=== PATIENT | female | born 1980 | race Caucasian/White ===

== ENCOUNTER → 2017-11-28 | Outpatient (CLI) | payer OTHER ==
--- NOTE | 2017-11-28 15:38 | DIAGNOSTIC IMAGING REPORT ---
CHEST 2 VIEWS ROUTINE CLINICAL HISTORY: R05,R61 cough COMPARISON STUDY: No previous studies for comparison. FINDINGS: Mild nonspecific bibasilar interstitial change. No well-defined focal infiltrates. Diaphragms are smooth. Upper lungs are clear. IMPRESSION: Mild nonspecific bibasilar interstitial change. Otherwise negative study. The above report was generated using voice recognition software. It may contain grammatical, syntax or spelling errors. Electronically signed by: Ihsan Ferrara M.D. 11/28/2017 3:37 PM Dictated Date/Time: 11/28/2017 3:36 PM
== END | disposition home or self-care (01) ==
LOC: C.RAD1850 15:24
PROVIDERS: ATTEND Family Medicine
DX: R05 Cough (principal); R61 Generalized hyperhidrosis

== ENCOUNTER → 2017-11-30 | Outpatient (CLI) | payer OTHER ==
[2017-11-30 18:14] LABS: BASO % 0.1 %; BASO ABS # 0.02 K/uL (0-0.2); EOS % 0.2 %; EOS ABS # 0.03 K/uL (0-0.5); HEMOGLOBIN 13.7 g/dL (12.0-16.0); IG# 0.05 K/uL (0.00-0.02); LYMPH % 8.2 %; LYMPH ABS # 1.37 K/uL (1.2-3.4); MEAN CELL VOLUME 84.4 fL (80-100); MEAN CORPUSCULAR HEMOGLOBIN 29.7 pg (25-34); MEAN CORPUSCULAR HGB CONC 35.1 g/dl (32-36); MEAN PLATELET VOLUME 10.6 fL (7.4-10.4); MONO % 6.3 %; MONO ABS # 1.06 K/uL (0.11-0.59); NEUT % 84.9 %; NEUT ABS # 14.19 K/uL (1.4-6.5); PLATELET COUNT 270 K/uL (130-400); RED CELL DISTRIBUTION WIDTH CV 12.4 % (11.5-14.5); RED CELL DISTRIBUTION WIDTH SD 38.1 fL (36.4-46.3); WHITE BLOOD COUNT 16.72 K/uL (4.8-10.8)
[2017-11-30 18:47] LABS: ALBUMIN 3.6 gm/dl (3.4-5.0); ALT/SGPT 19 U/L (12-78); AST/SGOT 9 U/L (15-37); BLOOD UREA NITROGEN 11 mg/dl (7-18); CALCIUM 8.2 mg/dl (8.5-10.1); CARBON DIOXIDE 24 mmol/L (21-32); CREATININE 0.87 mg/dl (0.60-1.20); GLUCOSE 111 mg/dl (70-99); POTASSIUM 3.7 mmol/L (3.5-5.1); SODIUM 135 mmol/L (136-145)
[2017-11-30 18:50] LABS: ALKALINE PHOSPHATASE 78 U/L (45-117); TOTAL PROTEIN 7.8 gm/dl (6.4-8.2)
== END | disposition home or self-care (01) ==
LOC: C.LAB 17:21
PROVIDERS: ATTEND Student in an Organized Health Care Education/Training Program
DX: J02.9 Acute pharyngitis, unspecified (principal)

== ENCOUNTER → 2017-12-02 | Outpatient (CLI) | payer OTHER ==
--- NOTE | 2017-12-02 15:50 | DIAGNOSTIC IMAGING REPORT ---
CHEST 2 VIEWS ROUTINE CLINICAL HISTORY: Fever and cough. COMPARISON STUDY: Chest radiograph November 28, 2017. FINDINGS: Lung volumes are normal. No pneumothorax or pleural effusion is noted. There is no consolidation or evidence for pulmonary edema. Cardiomediastinal silhouette is unremarkable. IMPRESSION: No acute cardiopulmonary findings. Electronically signed by: Merlin Child M.D. 12/02/2017 3:49 PM Dictated Date/Time: 12/02/2017 3:48 PM
[2017-12-02 15:55] LABS: BASO % 0.3 %; BASO ABS # 0.04 K/uL (0-0.2); EOS % 1.7 %; EOS ABS # 0.19 K/uL (0-0.5); HEMATOCRIT 38.6 % (37-47); HEMOGLOBIN 13.7 g/dL (12.0-16.0); IG# 0.06 K/uL (0.00-0.02); LYMPH % 20.8 %; LYMPH ABS # 2.38 K/uL (1.2-3.4); MEAN CELL VOLUME 83.9 fL (80-100); MEAN CORPUSCULAR HEMOGLOBIN 29.8 pg (25-34); MEAN PLATELET VOLUME 10.2 fL (7.4-10.4); MONO ABS # 1.38 K/uL (0.11-0.59); NEUT % 64.7 %; NEUT ABS # 7.41 K/uL (1.4-6.5); PLATELET COUNT 253 K/uL (130-400); RED CELL DISTRIBUTION WIDTH SD 39.3 fL (36.4-46.3); WHITE BLOOD COUNT 11.46 K/uL (4.8-10.8)
[2017-12-02 16:01] LABS: MEAN CORPUSCULAR HGB CONC 35.5 g/dl (32-36)
[2017-12-02 16:17] LABS: ALBUMIN 3.4 gm/dl (3.4-5.0); ALKALINE PHOSPHATASE 79 U/L (45-117); ALT/SGPT 20 U/L (12-78); AST/SGOT 12 U/L (15-37); BLOOD UREA NITROGEN 14 mg/dl (7-18); CARBON DIOXIDE 25 mmol/L (21-32); CREATININE 0.69 mg/dl (0.60-1.20); GLUCOSE 109 mg/dl (70-99); POTASSIUM 3.6 mmol/L (3.5-5.1); SODIUM 137 mmol/L (136-145); TOTAL PROTEIN 8.2 gm/dl (6.4-8.2)
[2017-12-05 06:14] LABS: QUANTIF MITOGEN-NIL 9.07 IU/ML; QUANTIFERON NEGATIVE (NEGATIVE); QUANTIFERON NIL 0.21 IU/ML
== END | disposition home or self-care (01) ==
LOC: C.LAB1850 14:48
PROVIDERS: ATTEND Student in an Organized Health Care Education/Training Program
DX: A68.9 Relapsing fever, unspecified (principal); R05 Cough

== ENCOUNTER 2020-10-03 07:59 | Inpatient (IN) ==
[2020-10-03] MEDS ORDERED: OXYTOCIN 30 UNITS/500 ML BAG IV PRN ×3 (08:20→23:02)
[2020-10-03] MEDS ORDERED: DEXTROSE 50% 50 ML SYRINGE IV PRN (08:22)
[2020-10-03] MEDS ORDERED: INSULIN REGULAR 250 UNITS in SODIUM CHLORIDE 0.9% 247.5 ML IV PRN (08:22)
[2020-10-03] MEDS ORDERED: DEXTROSE 5% 1,000 ML IV PRN (08:22)
[2020-10-03] MEDS ORDERED: SODIUM CHLORIDE 0.9% 1000ML 1,000 ML IV PRN (08:22)
[2020-10-03 08:40] LABS: Mean Corpuscular Hemoglobin 27.5 pg (25-34); Mean Corpuscular Hgb Conc 33.3 g/dL (32-36); Mean Corpuscular Volume 82.5 fL (80-100); Mean Platelet Volume 10.7 fL (7.4-10.4); Platelet Count 254 K/uL (130-400); RDW Coefficient of Variation 13.6 % (11.5-14.5); RDW Standard Deviation 41.6 fL (36.4-46.3); White Blood Count 9.88 K/uL (4.8-10.8)
--- NOTE | 2020-10-03 09:30 | Obstetrical Progress Note ---
Date of Service October 03, 2020 Assessment & Plan Admission and Anticipated Discharge Date Admission Date: October 03, 2020 Subjective Admit Note 40 F P1001 at 40 weeks admitted to L&D for induction of labor for gestational diabetes on insulin. Her GBS is negative. Covid is pending. Cervix is 3/70/- 3/vertex/intact/anterior/soft. EFW 9 lbs. Finger stick blood sugar this morning is 133. Patient is resistant to insulin drip but I told her that the protocol for women on insulin with high sugars is to be on an insulin drip. She is finally agreeing to start this now. I also explained that while on Oxytocin she needs to be monitored for both contractions and monitoring. She is in agreement with this as well. Will start Oxytocin for induction. Patient is in agreement with this. Results & Data ([facility]) Vital Signs (Past 12 Hours) Vital Signs Temp Pulse Resp BP 10/03/20 09:16 112 H 151/91 H 10/03/20 08:54 114 H 143/96 H 10/03/20 08:22 36.8 C 122 H 20 146/90 H
[2020-10-03] MEDS: LACTATED RINGER'S 1,000 ML IV PRN ×2 (10:18→17:47)
--- NOTE | 2020-10-03 15:56 | Obstetrical Progress Note ---
Date of Service October 03, 2020 Assessment & Plan Admission and Anticipated Discharge Date Admission Date: October 03, 2020 Physical Exam Genitourinary: Manual OB Exam: + cervical dilation 4 cm and 5 cm, + cervical effacement 70% and + station -2 OB Exam Monitor Tracing: + external FHT monitor used, + external uterine monitor used, + category I and + normal FHT variability Results & Data ([facility]) Vital Signs (Past 12 Hours) Vital Signs Temp Pulse Resp BP 10/03/20 15:54 93 H 155/87 H 10/03/20 15:38 85 160/96 H 10/03/20 15:02 36.7 C 91 H 20 132/94 10/03/20 14:29 90 138/76 10/03/20 13:31 36.7 C 91 H 20 132/83 10/03/20 12:33 83 20 111/74 10/03/20 11:35 90 157/88 H 10/03/20 11:20 92 H 144/88 H 10/03/20 11:01 36.9 C 95 H 20 144/91 H 10/03/20 10:28 101 H 143/91 H 10/03/20 09:16 112 H 151/91 H 10/03/20 08:54 114 H 143/96 H 10/03/20 08:22 36.8 C 122 H 20 146/90 H
[2020-10-03] MEDS ORDERED: ePHEDrine sulfate 50 MG/ML AMP ONE (17:59)
[2020-10-03] MEDS ORDERED: SODIUM CHLORIDE 0.9% INJ 10 ML VIAL ONE (17:59)
[2020-10-03] MEDS ORDERED: fentaNYL 2MCG/ML ROPIVACAINE 1.25MG/ML 100 ML BAG EPI ONE (18:00)
[2020-10-03] MEDS ORDERED: fentaNYL citrate 100 MCG/2 ML VIAL ONE (18:00)
[2020-10-03] MEDS ORDERED: BUPIVACAINE 0.25% 30 ML VIAL ONE (18:00)
--- NOTE | 2020-10-03 18:41 | Obstetrical Progress Note ---
Date of Service October 03, 2020 Assessment & Plan Admission and Anticipated Discharge Date Admission Date: October 03, 2020 Physical Exam Genitourinary: Manual OB Exam: + cervical dilation 7 cm and 8 cm, + cervical effacement 90%, + station -1 and + amniotic fluid clear OB Exam Monitor Tracing: + external FHT monitor used, + external uterine monitor used, + c ategory I and + normal FHT variability Results & Data ([facility]) Vital Signs (Past 12 Hours) Vital Signs Temp Pulse Resp BP Pulse Ox 10/03/20 18:39 86 98 10/03/20 18:38 80 143/90 H 10/03/20 18:34 90 138/65 97 10/03/20 18:29 89 97 10/03/20 18:28 82 92 10/03/20 18:24 93 H 98 10/03/20 18:19 92 H 98 10/03/20 18:14 89 97 10/03/20 18:09 87 98 10/03/20 18:07 88 128/71 10/03/20 18:04 86 98 10/03/20 17:01 86 20 129/83 10/03/20 15:54 93 H 155/87 H 10/03/20 15:38 85 160/96 H 10/03/20 15:02 36.7 C 91 H 20 132/94 10/03/20 14:29 90 138/76 10/03/20 13:31 36.7 C 91 H 20 132/83 10/03/20 12:33 83 20 111/74 10/03/20 11:35 90 157/88 H 10/03/20 11:20 92 H 144/88 H 10/03/20 11:01 36.9 C 95 H 20 144/91 H 10/03/20 10:28 101 H 143/91 H 10/03/20 09:16 112 H 151/91 H 10/03/20 08:54 114 H 143/96 H 10/03/20 08:22 36.8 C 122 H 20 146/90 H
--- NOTE | 2020-10-03 18:55 | Anesthesiology Consultation ---
Date of Service October 03, 2020 Assessment & Plan Chart Review Chart Review: Acceptable Risk for Labor Epidural Consults Requested none History Height/Weight Height: 5 ft 7.5 in Weight: 132.449 kg Allergies Allergy/AdvReac Type Severity Reaction Status Date / Time morphine AdvReac Agitated Verified 10/03/20 08:23 Medications Home Medications Medication Instructions Recorded Confirmed Last Taken doxylamine succinate 25 mg PO BID PRN 10/03/20 10/03/20 10/03/20 00:01 insulin NPH isoph U-100 human 50 unit SUBCUT HS 10/03/20 10/03/20 10/03/20 00:01 Active Medications Generic Name Dose Route Start Last Admin Trade Name Freq PRN Reason Stop Dose Admin Lactated Ringer's 1,000 mls @ 125 mls/hr 10/03/20 08:20 10/03/20 18:51 Lr IV 10/05/20 08:19 125 mls/hr .Q8H PRN Infusion L&D Protocol Protocol Insulin Human Regular 250 250 mls @ 0.5 mls/hr 10/03/20 08:22 10/03/20 18:45 units/ Sodium Chloride IV 11/02/20 08:21 1 units/hr Q24H PRN 1 mls/hr BSG 80mg/dL or above Titration Protocol Titrate Dextrose 1,000 mls @ 100 mls/hr 10/03/20 08:22 10/03/20 18:50 D5w IV 11/02/20 08:21 75 mls/hr .Q10H PRN Infusion BSG 180 or below Protocol Oxytocin 30 units in 500 mls @ 15 mls/hr 10/03/20 09:20 10/03/20 18:51 Pitocin IV 10/05/20 09:19 0.9 units/hr .Q24H PRN 15 mls/hr Labor Induction/Augmentation Titration Protocol 0.9 UNITS/HR Past Medical History Medical History Finger amputation, no complication Past Family History Family History Other Hypertension Social History Smoking Status: Never smoker Hx Alcohol Use: No Hx Substance Use: No Physical Exam Vital Signs Last Vital Signs Temp 36.7 C 10/03/20 15:02 Pulse 93 H 01/15/21 18:52 Resp 20 10/03/20 17:01 BP 133/81 10/03/20 18:52 Pulse Ox 98 10/03/20 18:49 Testing Laboratory Results 10/03/20 08:27 10/03/20 10/03/20 10/03/20 18:47 17:23 16:33 POC Glucose 111 H 92 91 10/03/20 10/03/20 10/03/20 15:31 14:31 13:34 POC Glucose 101 H 83 87 10/03/20 10/03/20 10/03/20 12:34 11:30 10:34 POC Glucose 92 92 102 H 10/03/20 10/03/20 09:47 08:46 POC Glucose 107 H 133 H
[2020-10-03] MEDS ORDERED: diphenhydrAMINE 50 MG/ML VIAL IV PRN ×3 (18:57→20:50)
[2020-10-03] MEDS ORDERED: NALOXONE HCL 0.4 MG/1 ML VIAL/CARP IV PRN ×3 (18:57→20:50)
[2020-10-03] MEDS ORDERED: ePHEDrine sulfate 50 MG/ML AMP IV PRN ×3 (18:57→20:50)
[2020-10-03] MEDS ORDERED: fentaNYL 2MCG/ML ROPIVACAINE 1.25MG/ML 100 ML BAG EPI PRN ×3 (18:57→20:50)
[2020-10-03] MEDS ORDERED: NALOXONE HCL 1 MG in SODIUM CHLORIDE 0.9% 1000ML 1,000 ML IV PRN ×3 (18:57→20:50)
[2020-10-03] MEDS ORDERED: Nursing to Pharmacy Communication SCH (21:00)
--- NOTE | 2020-10-03 21:53 | Obstetrical Progress Note ---
Date of Service October 03, 2020 Assessment & Plan Admission and Anticipated Discharge Date Admission Date: October 03, 2020 Physical Exam Genitourinary: Manual OB Exam: + cervical dilation 10 cm, + cervical effacement 100% and + station 0 OB Exam Monitor Tracing: + external FHT monitor used, + external uterine monitor used, + category I and + normal FHT variability will start to push Results & Data ([facility]) Vital Signs (Past 12 Hours) Vital Signs Temp Pulse Resp BP Pulse Ox 10/03/20 21:49 97 H 99 10/03/20 21:44 97 H 100 10/03/20 21:39 89 97 10/03/20 21:37 93 H 125/72 10/03/20 21:34 87 98 10/03/20 21:29 80 96 10/03/20 21:24 82 96 10/03/20 21:23 84 123/63 10/03/20 21:19 86 98 10/03/20 21:14 85 98 10/03/20 21:09 79 98 10/03/20 21:07 79 116/67 10/03/20 21:04 82 98 10/03/20 21:01 18 10/03/20 20:59 86 100 10/03/20 20:54 95 H 98 10/03/20 20:53 81 126/66 10/03/20 20:49 83 98 10/03/20 20:44 85 100 10/03/20 20:39 85 129/64 99 10/03/20 20:34 80 99 10/03/20 20:29 88 97 10/03/20 20:24 83 126/81 98 10/03/20 20:19 82 98 10/03/20 20:14 78 98 10/03/20 20:09 80 99 10/03/20 20:08 80 127/59 L 10/03/20 20:04 91 H 97 10/03/20 19:59 75 18 98 10/03/20 19:54 82 99 10/03/20 19:53 84 89 L 10/03/20 19:49 84 98 10/03/20 19:44 80 99 10/03/20 19:39 78 98 10/03/20 19:37 75 114/65 10/03/20 19:34 89 99 10/03/20 19:29 87 99 10/03/20 19:24 84 99 10/03/20 19:23 83 113/68 10/03/20 19:19 86 99 10/03/20 19:15 36.4 C L 18 10/03/20 19:14 88 99 10/03/20 19:09 97 H 99 10/03/20 19:06 83 137/75 10/03/20 19:04 88 99 10/03/20 19:01 83 127/86 10/03/20 18:59 80 98 10/03/20 18:55 82 140/85 10/03/20 18:54 93 H 99 10/03/20 18:52 93 H 133/81 10/03/20 18:49 95 H 130/80 98 10/03/20 18:46 94 H 126/78 10/03/20 18:44 97 H 98 10/03/20 18:43 83 130/72 10/03/20 18:40 96 H 105/66 10/03/20 18:39 86 98 10/03/20 18:38 80 143/90 H 10/03/20 18:34 90 138/65 97 10/03/20 18:29 89 97 10/03/20 18:28 82 92 10/03/20 18:24 93 H 98 10/03/20 18:19 92 H 98 10/03/20 18:14 89 97 10/03/20 18:09 87 98 10/03/20 18:07 88 128/71 10/03/20 18:04 86 98 10/03/20 17:01 86 20 129/83 10/03/20 15:54 93 H 155/87 H 10/03/20 15:38 85 160/96 H 10/03/20 15:02 36.7 C 91 H 20 132/94 10/03/20 14:29 90 138/76 10/03/20 13:31 36.7 C 91 H 20 132/83 10/03/20 12:33 83 20 111/74 10/03/20 11:35 90 157/88 H 10/03/20 11:20 92 H 144/88 H 10/03/20 11:01 36.9 C 95 H 20 144/91 H 10/03/20 10:28 101 H 143/91 H
--- NOTE | 2020-10-03 22:58 | Delivery Summary ---
Vaginal Delivery Summary Date of Service October 03, 2020 Delivery Note live female RENÉE over intact perineum with delayed cord clamping and Apgars 8/9, weight pending. Cord blood obtained and placenta delivered spontaneously and intact. No tears. EBL 200 ml. Final sponge and instrument count are correct. Mom and baby are stable.
[2020-10-03] MEDS ORDERED: ACETAMINOPHEN 325 MG TAB PO PRN (23:02)
[2020-10-03] MEDS ORDERED: LACTATED RINGER'S 1,000 ML IV SCH (23:02)
[2020-10-03] MEDS ORDERED: BENZOCAINE 20% AER SPR 82.5 GM CAN EXT PRN (23:02)
[2020-10-03] MEDS ORDERED: DIPHTHERIA/TETANUS/PERTUSSIS 0.5 ML SYR/VIAL IM ONE (23:02)
[2020-10-03] MEDS ORDERED: SUPERCREAM 0.870% 15 GM JAR EXT PRN (23:02)
[2020-10-03] MEDS ORDERED: bisacodyL 10 MG SUPP PR PRN (23:02)
[2020-10-03] MEDS ORDERED: HYDROCORTISONE ACETATE 25 MG SUPP PR PRN (23:02)
[2020-10-04] MEDS: IBUPROFEN 600 MG TAB PO PRN ×3 (01:34→19:38)
[2020-10-04 06:37] LABS: Hematocrit (blood only) 27.8 % (37-47); Hemoglobin 9.3 g/dL (12.0-16.0); Mean Corpuscular Hemoglobin 27.4 pg (25-34); Mean Corpuscular Hgb Conc 33.5 g/dL (32-36); Mean Platelet Volume 10.8 fL (7.4-10.4); Platelet Count 236 K/uL (130-400); RDW Coefficient of Variation 13.8 % (11.5-14.5); RDW Standard Deviation 41.5 fL (36.4-46.3); Red Blood Count 3.39 M/uL (4.2-5.4); White Blood Count 14.33 K/uL (4.8-10.8)
--- NOTE | 2020-10-04 07:38 | Anesthesia Procedure Note ---
Date of Service October 04, 2020 Anesthesia Post Epidural Note Vital Signs Vital Signs: Temp Pulse Resp BP Pulse Ox 36.3 C L 84 18 121/78 97 10/04/20 04:10 10/04/20 04:10 10/04/20 04:10 10/04/20 04:10 10/03/20 23:49 Pain Intensity Bilateral Anterior Abdomen: Pain Intensity: 3 Notes Mental Status: alert / awake / arousable and participated in evaluation Nausea / Vomiting: adequately controlled Pain: adequately controlled Airway Patency, RR, SpO2: stable & adequate BP & HR: stable & adequate Hydration State: stable & adequate Neuraxial Anesthesia: was administered and sensory block is resolving Anesthetic Complications: no major complications apparent and Pt Satisfied with anesthetic care Epidural: Removed without complications and With tip intact Notes: pulled by eloy levy - tip intact. Epidural site clean, dry and intact. No signs of edema, erythema or bruising at insertion site. Pt instructed to request anesthesia if she has residual lower extremity numbness or if she develops lower extremity pain or weakness, back pain or headache.
[2020-10-04] MEDS ORDERED: FERROUS SULFATE 325 MG TAB PO SCH (08:00)
[2020-10-04] MEDS ORDERED: DOCUSATE SODIUM 100 MG CAP PO SCH (08:00)
[2020-10-04] MEDS ORDERED: PRENATAL VITAMIN 1 TAB PO SCH (08:00)
[2020-10-04] MEDS: FERROUS SULFATE 325 MG TAB PO SCH ×2 (08:45→19:39)
--- NOTE | 2020-10-04 10:27 | Obstetrical Progress Note ---
Date of Service October 04, 2020 Assessment & Plan Admission and Anticipated Discharge Date Admission Date: October 03, 2020 Subjective Patient is seen and examined. She feels well, no complaints. Ambulating without dizziness Voiding without difficulty Tolerating regular diet with out N&V Bleeding is minimal No fever/ chills/ CP/ SOB/ N&V/ Leg pain Breast feeding without problems Vital Signs Temp Pulse Pulse Resp BP BP Pulse Ox 10/04/20 04:10 36.3 C L 84 18 121/78 10/04/20 02:10 36.6 C 103 H 18 141/89 H 10/04/20 00:53 113 H 148/80 H 10/04/20 00:40 18 10/04/20 00:23 115 H 139/79 10/04/20 00:10 18 10/03/20 23:55 104 H 139/74 10/03/20 23:49 106 H 97 10/03/20 23:44 93 H 98 10/03/20 23:40 1 L 10/03/20 23:39 102 H 98 10/03/20 23:34 91 H 97 10/03/20 23:29 96 H 97 10/03/20 23:25 18 10/03/20 23:24 109 H 96 10/03/20 23:23 112 H 139/66 10/03/20 23:19 93 H 97 10/03/20 23:14 92 H 96 10/03/20 23:10 18 10/03/20 23:09 88 97 10/03/20 23:06 92 H 132/63 10/03/20 23:04 91 H 97 10/03/20 22:59 94 H 97 10/03/20 22:55 18 10/03/20 22:54 88 98 10/03/20 22:49 91 H 98 10/03/20 22:44 98 H 97 10/03/20 22:40 36.7 C 18 10/03/20 22:39 95 H 97 10/03/20 22:38 108 H 158/84 H 10/03/20 22:34 106 H 98 10/03/20 22:30 18 10/03/20 22:29 100 H 97 Lab Results 10/03/20 10/03/20 10/03/20 Range/Units 08:27 08:46 09:47 WBC 9.88 (4.8-10.8) K/uL RBC 4.00 L (4.2-5.4) M/uL Hgb 11.0 L (12.0-16.0) g/dL Hct 33.0 L (37-47) % MCV 82.5 (80-100) fL MCH 27.5 (25-34) pg MCHC 33.3 (32-36) g/dL RDW Std Deviation 41.6 (36.4-46.3) fL RDW Coeff of Leonard 13.6 (11.5-14.5) % Plt Count 254 (130-400) K/uL MPV 10.7 H (7.4-10.4) fL POC Glucose 133 H 107 H (70-99) mg/dl COVID-19 Eval Order SARS-CoV-2, RNA, NAAT (NEGATIVE) 10/03/20 10/03/20 10/03/20 Range/Units 10:34 11:30 12:34 WBC (4.8-10.8) K/uL RBC (4.2-5.4) M/uL Hgb (12.0-16.0) g/dL Hct (37-47) % MCV (80-100) fL MCH (25-34) pg MCHC (32-36) g/dL RDW Std Deviation (36.4-46.3) fL RDW Coeff of Leonard (11.5-14.5) % Plt Count (130-400) K/uL MPV (7.4-10.4) fL POC Glucose 102 H 92 92 (70-99) mg/dl COVID-19 Eval Order SARS-CoV-2, RNA, NAAT (NEGATIVE) 10/03/20 10/03/20 10/03/20 Range/Units 13:34 14:31 15:31 WBC (4.8-10.8) K/uL RBC (4.2-5.4) M/uL Hgb (12.0-16.0) g/dL Hct (37-47) % MCV (80-100) fL MCH (25-34) pg MCHC (32-36) g/dL RDW Std Deviation (36.4-46.3) fL RDW Coeff of Leonard (11.5-14.5) % Plt Count (130-400) K/uL MPV (7.4-10.4) fL POC Glucose 87 83 101 H (70-99) mg/dl COVID-19 Eval Order SARS-CoV-2, RNA, NAAT (NEGATIVE) 10/03/20 10/03/20 10/03/20 Range/Units 16:33 17:23 18:47 WBC (4.8-10.8) K/uL RBC (4.2-5.4) M/uL Hgb (12.0-16.0) g/dL Hct (37-47) % MCV (80-100) fL MCH (25-34) pg MCHC (32-36) g/dL RDW Std Deviation (36.4-46.3) fL RDW Coeff of Leonard (11.5-14.5) % Plt Count (130-400) K/uL MPV (7.4-10.4) fL POC Glucose 91 92 111 H (70-99) mg/dl COVID-19 Eval Order SARS-CoV-2, RNA, NAAT (NEGATIVE) 10/03/20 10/03/20 10/03/20 Range/Units 19:47 20:40 22:01 WBC (4.8-10.8) K/uL RBC (4.2-5.4) M/uL Hgb (12.0-16.0) g/dL Hct (37-47) % MCV (80-100) fL MCH (25-34) pg MCHC (32-36) g/dL RDW Std Deviation (36.4-46.3) fL RDW Coeff of Leonard (11.5-14.5) % Plt Count (130-400) K/uL MPV (7.4-10.4) fL POC Glucose 105 H 92 94 (70-99) mg/dl COVID-19 Eval Order SARS-CoV-2, RNA, NAAT (NEGATIVE) 10/03/20 10/03/20 10/04/20 Range/Units Unknown Unknown 06:10 WBC 14.33 H (4.8-10.8) K/uL RBC 3.39 L (4.2-5.4) M/uL Hgb 9.3 L (12.0-16.0) g/dL Hct 27.8 L (37-47) % MCV 82.0 (80-100) fL MCH 27.4 (25-34) pg MCHC 33.5 (32-36) g/dL RDW Std Deviation 41.5 (36.4-46.3) fL RDW Coeff of Leonard 13.8 (11.5-14.5) % Plt Count 236 (130-400) K/uL MPV 10.8 H (7.4-10.4) fL POC Glucose (70-99) mg/dl COVID-19 Eval Order Covid19 [facility] SARS-CoV-2, RNA, NAAT NEGATIVE (NEGATIVE) PE: General: Alert, orientedx3, NAD Abd: soft, NT, fundus firm, below Umbilicus Perineum intact, Lochia rubra minimal Ext; NT, no edema AP: 40 yo s/p , ppd# 1 VSS Afebrile doing well Continue routine care All questions were answered Desires d/c tonight Discussed when to call D/C home , f/u in office Results & Data ([facility]) Vital Signs (Past 12 Hours) Vital Signs Temp Pulse Pulse Resp BP BP Pulse Ox 10/04/20 04:10 36.3 C L 84 18 121/78 10/04/20 02:10 36.6 C 103 H 18 141/89 H 10/04/20 00:53 113 H 148/80 H 10/04/20 00:40 18 10/04/20 00:23 115 H 139/79 10/04/20 00:10 18 10/03/20 23:55 104 H 139/74 10/03/20 23:49 106 H 97 10/03/20 23:44 93 H 98 10/03/20 23:40 1 L 10/03/20 23:39 102 H 98 10/03/20 23:34 91 H 97 10/03/20 23:29 96 H 97 10/03/20 23:25 18 10/03/20 23:24 109 H 96 10/03/20 23:23 112 H 139/66 10/03/20 23:19 93 H 97 10/03/20 23:14 92 H 96 10/03/20 23:10 18 10/03/20 23:09 88 97 01/15/21 23:06 92 H 132/63 01/15/21 23:04 91 H 97 10/03/20 22:59 94 H 97 10/03/20 22:55 18 10/03/20 22:54 88 98 10/03/20 22:49 91 H 98 10/03/20 22:44 98 H 97 10/03/20 22:40 36.7 C 18 10/03/20 22:39 95 H 97 10/03/20 22:38 108 H 158/84 H 10/03/20 22:34 106 H 98 10/03/20 22:30 18 10/03/20 22:29 100 H 97
[2020-10-04] MEDS ORDERED: bisacodyL 5 MG TABEC PO SCH (20:00)
== END 2020-10-04 23:40 | disposition home or self-care (01) | DRG 807 ==
LOC: 4S1 07:59 → 4S2 10-04 01:47

== ENCOUNTER 2023-09-19 00:46 | Inpatient (IN) ==
[2023-09-19] MEDS ORDERED: GABAPENTIN 100 MG CAP PO STA (01:21)
[2023-09-19] MEDS ORDERED: ACETAMINOPHEN 1,000 MG/100 ML VIAL IV STA (01:21)
[2023-09-19] MEDS ORDERED: LIDOCAINE 5% 1 PATCH TD STA (01:21)
[2023-09-19] MEDS ORDERED: KETOROLAC TROMETHAMINE 15 MG/ML VIAL IV ONE ×2 (01:21→08:26)
--- NOTE | 2023-09-19 01:21 | Emergency Department Note ---
Impression & Plan Back pain, Lumbar radiculopathy, Lumbar disc herniation ED Provider Note ED Provider Note NAME: ERASTO HARVEY AGE:43 SEX: Female : 1980 ARRIVES VIA: private vehicle INFORMANT: Patient ED PROVIDER(s): Sujata Griffith DO CHIEF COMPLAINT: back pain, unable to walk, difficulty urinating HPI: This is a 43-year-old female who presents emergency department due to concern for worsening back pain. Patient states she has a history of chronic back pain managed by physical therapy and regular chiropractic appointments. She states she and her have been on sabbatical in [place] recently so she was unable to have regular appointments such as this and she had slowly worsening pain over the course of the last 6 months. She states on Tuesday she was standing at a workstation with her right leg up on the step and sneezed and suddenly had severe pain in her back radiating down into the right lower extremity and has been unable to walk since then. She states she was in [place] when this happened where she is from and was seen and admitted at a hospital in [place]. She states she underwent CAT scan and MRI. She states she had a previously known herniated disc in her lumbar spine which now appeared worse on imaging. She states they did not feel she required surgery and instead were going to try and get her placed in inpatient rehab for physiotherapy. She states she has previously seen Dr. Ward locally as she works for the [employer]. She states she has been in contact with her chiropractor who had messaged Dr. Ward and she was instructed to come to the ER to be admitted. Patient was given additional medications at time of discharge from the hospital in [place] including hydromorphone and Celebrex. She did take a dose of the narcotic pain medication prior to arrival. PAST MEDICAL HISTORY:See Below PAST SURGICAL HISTORY:See Below FAMILY HISTORY:See Below SOCIAL HISTORY:See Below HOME MEDICATIONS:See Below ALLERGIES:See Below VITALS:See Below PHYSICAL EXAMINATION: GENERAL: alert, unwell appearing, well nourished, no distress, non-toxic, laying prone EYE EXAM: normal conjunctiva, PERRL and EOM's grossly intact OROPHARYNX: no exudate, no erythema, lips, buccal mucosa, and tongue normal and mucous membranes are moist NECK: supple, no nuchal rigidity, no adenopathy, non-tender LUNGS: Clear to auscultation. Normal chest wall mechanics, no w/r/r HEART: no murmurs, S1 normal and S2 normal ABDOMEN: abdomen soft, non-tender, normo-active bowel sounds, no masses, no rebound or guarding. BACK: Back is symmetrical on inspection and there is no deformity, tenderness across lumbar area, no CVA tenderness. SKIN: no rashes, petechiae, orbruising UPPER EXTREMITIES: upper extremities are grossly normal. FROM, nml pulses b/l. LOWER EXTREMITIES: No pitting edema. nml pulses b/l. Sensation intact however patient states right lower extremity feels slightly weak and she has slight tingling and dullness, weakness noted with plantar and dorsiflexion of the right lower extremity, right patellar reflex diminished NEURO EXAM: Normal sensorium, cranial nerves II-XII grossly intact, normal speech, no facial droop,nogross weakness of arms, no gross weakness of legs. Gross sensation intact. No ataxia. Vital Signs: reviewed and remarkable Differential Diagnosis: Differential diagnoses includes but is not limited to lumbar radiculopathy, muscle strain, facture, cauda equina, mass, and disc herniation. MEDICAL DECISION MAKING: This is a 43-year-old female presents emergency department due to concern for increased low back pain, inability to walk, as well as right lower extremity pain and paresthesias. Patient with chronic low back pain and known herniated disc. Patient afebrile and vital signs stable. She did bring with copies of reports from recent hospitalization in [place] which is where symptoms began. She was referred here by her chiropractor who had contacted Dr. Ward. Labs drawn and sent, IV established, patient started on gentle IV fluid hydration and given IV Toradol and IV Dilaudid to help with her pain. Case initially discussed with Dr. Ward's PA overnight who recommended repeat lumbar spine given no images from her recent imaging were actually available only reports. Patient sent for MRI. Case then discussed with Dr. Ward in the morning who will admit her for additional management and evaluation. Patient updated multiple times on results and plan as well as conversations with consultants and she verbalized understanding. Patient was given several doses of pain medication throughout her stay. She was hemodynamically stable throughout. I do not suspect any concurrent renal pathology or infection. Consultation(s): 0300: Discussed with Wei Soto PA-C with [facility]. Recommends getting MR lumbar spine. 0800: Discussed with Dr. Ward. He will admit her. ER Treatment Provided: See below Diagnostics Interpreted By Me: -ECG: [] -Cardiac Monitoring: An order was placed for continuous cardiac monitoring. The monitor shows a rate of 66 with normal sinus rhythm. -Laboratory studies: As stated above and show below. -Imaging studies: [] Triage Nursing Note Reviewed Prior/Outside Records Reviewed -MR L-spine without contrast performed on 09/17/2023 -of which was read by outside facility radiology as showing L4-5 circumferential disc bulge with a right sided disc extrusion which is compressing the right L5 nerve root in the lateral recess. This is also resulting in severe central stenosis. Past Med/Surg History Medical History Finger amputation, no complication Family History Other Hypertension Social History Smoking Status: Never smoker Hx Alcohol Use: No Hx Substance Use: No Preferred Language: [place] Communication Ability: Effective Gps Field Data Collector Required: No Beliefs That Will Affect Care: None marital status: Current Living Situation: Spouse Feels Safe at Home: Yes Assistive Devices: None Allergies Allergies Allergy/AdvReac Type Severity Reaction Status Date / Time morphine AdvReac Agitated Verified 09/19/23 01:48 Home Meds Home Medications Medication Instructions Recorded Confirmed ibuprofen 200 mg tablet 400 mg PO HS Pain 10/10/20 09/19/23 multivitamin 1 tab PO DAILY 10/10/20 09/19/23 ibuprofen 200 mg tablet 800 mg PO QAM 09/19/23 09/19/23 Results & Data (ED) Vital Signs Vital Signs - 24 hr 09/19/23 00:54 09/19/23 00:54 09/19/23 01:02 Temperature 36.8 C 36.3 C L Temperature Source Oral Oral Pulse Rate 88 87 Pulse Rate [Apical] 89 Pulse Rhythm Regular Pulse Rhythm [Apical] Regular Pulse Strength Normal Pulse Strength [Apical] Normal Respiratory Rate 14 17 Respiratory Effort / Characteristics Non-Labored Non-Labored Respiratory Depth Normal Normal Respiratory Pattern Regular Regular Blood Pressure 173/118 H Blood Pressure [Left Arm] 173/118 H Blood Pressure Mean 136 Blood Pressure Mean [Left Arm] 136 Pulse Oximetry 97 97 Oxygen Delivery Method Room Air Room Air Sepsis Recent Fever Within 48 Hours No Sepsis New/Unexplained Change in Mental Status No Sepsis Action Taken by Nursing No Action Required 09/19/23 01:02 09/19/23 01:30 09/19/23 02:00 Temperature Temperature Source Pulse Rate 87 71 Pulse Rate [Apical] Pulse Rhythm Pulse Rhythm [Apical] Pulse Strength Pulse Strength [Apical] Respiratory Rate 20 16 Respiratory Effort / Characteristics Respiratory Depth Respiratory Pattern Blood Pressure Blood Pressure [Left Arm] Blood Pressure Mean Blood Pressure Mean [Left Arm] Pulse Oximetry 97 96 95 Oxygen Delivery Method Sepsis Recent Fever Within 48 Hours Sepsis New/Unexplained Change in Mental Status Sepsis Action Taken by Nursing 09/19/23 03:00 09/19/23 04:00 09/19/23 05:02 Temperature Temperature Source Pulse Rate Pulse Rate [Apical] 67 78 88 Pulse Rhythm Pulse Rhythm [Apical] Pulse Strength Pulse Strength [Apical] Respiratory Rate 15 16 19 Respiratory Effort / Characteristics Respiratory Depth Respiratory Pattern Blood Pressure Blood Pressure [Left Arm] 160/102 H 147/97 H 168/95 H Blood Pressure Mean Blood Pressure Mean [Left Arm] 121 113 119 Pulse Oximetry 94 96 96 Oxygen Delivery Method Room Air Room Air Room Air Sepsis Recent Fever Within 48 Hours Sepsis New/Unexplained Change in Mental Status Sepsis Action Taken by Nursing 09/19/23 06:00 09/19/23 08:00 Temperature Temperature Source Pulse Rate Pulse Rate [Apical] 68 69 Pulse Rhythm Pulse Rhythm [Apical] Regular Pulse Strength Pulse Strength [Apical] Respiratory Rate 18 18 Respiratory Effort / Characteristics Non-Labored Respiratory Depth Normal Respiratory Pattern Regular Blood Pressure Blood Pressure [Left Arm] 177/109 H 164/92 H Blood Pressure Mean Blood Pressure Mean [Left Arm] 131 116 Pulse Oximetry 95 95 Oxygen Delivery Method Room Air Room Air Sepsis Recent Fever Within 48 Hours Sepsis New/Unexplained Change in Mental Status Sepsis Action Taken by Nursing Laboratory Data 09/19/23 01:25 09/19/23 01:25 Lab Results 09/19/23 09/19/23 Range/Units 01:25 02:15 WBC 11.04 H (4.8-10.8) K/ul RBC 4.82 (4.20-5.40) M/uL Hgb 14.0 (12.0-16.0) g/dl Hct 40.7 (37.0-47.0) % MCV 84.4 (80.0-100.0) fL MCH 29.0 (25.0-34.0) pg MCHC 34.4 (32.0-36.0) g/dL RDW Std Deviation 37.5 (36.4-46.3) fL RDW Coeff of Leonard 12.4 (11.5-14.5) % Plt Count 305 (130-400) K/uL MPV 10.6 (9.4-12.4) fL Immature Gran % (Auto) 0.4 % Neut % (Auto) 63.9 % Lymph % (Auto) 23.3 % [place] % (Auto) 7.4 % Eos % (Auto) 4.6 % Baso % (Auto) 0.4 % Neut # (Auto) 7.06 H (1.40-6.50) K/uL Lymph # (Auto) 2.57 (1.20-3.40) K/uL [place] # (Auto) 0.82 H (0.11-0.59) K/uL Eos # (Auto) 0.51 H (0.00-0.50) K/uL Baso # (Auto) 0.04 (0.00-0.20) K/uL Immature Gran # (Auto) 0.04 (0.01-0.20) K/uL PT 10.7 (9.0-12.0) Seconds INR 1.0 (0.9-1.1) Sodium 138 (136-145) mmol/L Potassium 3.6 (3.5-5.1) mmol/L Chloride 104 (98-107) mmol/L Carbon Dioxide 26 (21-32) mmol/L Anion Gap 8 (3-11) BUN 15 (6-23) mg/dl Creatinine 0.72 (0.6-1.2) mg/dl Est Cr Clr Drug Dosing 142.8 ml/min Est GFR ( Amer) 118.0 ml/min Est GFR (Non-Af Amer) 101.9 ml/min BUN/Creatinine Ratio 20.8 H (10-20) Glucose 136 H (70-99(Fasting)) mg/dl Calcium 9.3 (8.6-10.3) mg/dl Total Bilirubin 0.5 (0.2-1.0) mg/dl AST 16 (13-39) U/L ALT 15 (7-52) U/L Alkaline Phosphatase 57 (34-104) U/L Total Protein 7.4 (6.0-8.3) gm/dl Albumin 4.3 (3.4-5.0) gm/dl Globulin 3.1 (2.5-4.0) gm/dl Albumin/Globulin Ratio 1.4 (0.9-2) Lipase 13 (11-82) U/L HCG, Qual Negative (Negative) Urine Color Yellow Urine Appearance Clear (Clear) Urine pH 5.5 (4.5-7.5) Ur Specific [place] 1.018 (1.000-1.030) Urine Protein Negative (Negative) Urine Glucose (UA) Negative (Negative) Urine Ketones Negative (Negative) Urine Blood Negative (Negative) Urine Nitrite Negative (Negative) Urine Bilirubin Negative (Negative) Urine Urobilinogen Negative (Negative) Ur Leukocyte Esterase Negative (Negative) Administered Medications Hydromorphone HCl (Hydromorphone Inj 0.5 Mg/0.5 Ml Syr) 0.5 mg IV Q15M PRN PRN Reason: Pain Stop: 10/03/23 03:23 Last Admin: 09/19/23 08:36 Dose: 0.5 mg Documented By: TONYA Sodium Chloride (Nss) 1,000 mls @ 125 mls/hr IV .Q8H YANIRA Stop: 10/19/23 01:29 Last Admin: 09/19/23 01:43 Dose: 125 mls/hr Documented By: ADRIANA Discontinued Medications Gabapentin (Gabapentin 100 Mg Cap) 100 mg PO NOW STA Stop: 09/19/23 01:22 Last Admin: 09/19/23 04:12 Dose: 100 mg Documented By: AASHISH Acetaminophen (Ofirmev) 1,000 mg in 100 mls @ 400 mls/hr IV NOW STA Stop: 09/19/23 01:35 Last Infusion: 09/19/23 02:22 Dose: Infused Documented By: Admin: 09/19/23 01:42 Dose: 400 mls/hr Documented By: ADRIANA Ketorolac Tromethamine (Ketorolac Tromethamine 15 Mg/Ml Vial) 10 mg IV NOW ONE Stop: 09/19/23 01:22 Last Admin: 09/19/23 01:43 Dose: 10 mg Documented By: ADRIANA Ketorolac Tromethamine (Ketorolac Tromethamine 15 Mg/Ml Vial) 10 mg IV NOW ONE Stop: 09/19/23 08:27 Last Admin: 09/19/23 08:30 Dose: 10 mg Documented By: TONYA Lidocaine (Lidocaine 5% 1 Patch) 1 patch TD NOW STA Stop: 09/19/23 01:22 Last Admin: 09/19/23 01:42 Dose: 1 patch Documented By: ADRIANA Ondansetron HCl (Ondansetron Inj 2 Mg/Ml 2 Ml Vial) 4 mg IV NOW STA Stop: 09/19/23 08:33 Last Admin: 09/19/23 08:36 Dose: 4 mg Documented By: TONYA Imaging Data Radiologist's Impression: Lumbar Spine MRI 09/19/23 03:15 MRI OF THE LUMBAR SPINE WITHOUT CONTRAST CLINICAL HISTORY: Increased low back pain, paresthesias, unable to walk. COMPARISON STUDY: No previous studies for comparison. TECHNIQUE: Utilizing a 1.5 Katerine magnet and dedicated coil, multiplanar, multiecho imaging of the lumbar spine was performed without IV contrast. FINDINGS: For purposes of numbering on this exam, the L5-S1 disc space is assigned to axial image 26 of 28. Alignment of the lumbar spine is anatomic. Vertebral body heights are maintained. No intracanalicular mass or fluid collection is present. Conus terminates at the upper L1 level. Paravertebral soft tissues are unremarkable. L1-2: The central canal and neural foramen are patent. L2-3: There is minimal disc bulge with a tiny central disc protrusion. The central canal and neural foramen are patent. L3-4: There is mild disc bulge with a small central disc protrusion with annular tear. There is mild facet arthrosis. Central canal is patent. There is mild narrowing of the bilateral neural foramen. L4-5: There is a 2.5 x 1 6 x 1.3 cm right paracentral disc extrusion which results in severe narrowing of the right lateral recess and moderate to severe central canal stenosis. Patent AP diameter of the canal is 5.8 mm. There is significant mass effect upon the descending right L5 nerve root. There is moderate bilateral neural foraminal stenosis at this level. Moderate facet arthrosis is also present. L5-S1: The central canal and neural foramen are patent. IMPRESSION: 1. Large right paracentral disc extrusion at L4-5 which results in severe narrowing of the right lateral recess with significant mass effect upon the descending right L5 nerve root. This also results in moderate to severe narrowing of the central canal and moderate narrowing of the right neural foramen. 2. Small central disc protrusion with disc bulge at L3-L4. Tiny central disc protrusion at L2-L3. 3. Mild multilevel facet arthrosis. ACT 112: Negative or not required by law. Electronically signed by: Merlin Child M.D. 09/19/2023 8:11 AM Discharge Plan Visit Data Chief Complaint: Back Injury/Pain ED Provider: Sujata Griffith Discharge Problem: Back pain, Lumbar radiculopathy, Lumbar disc herniation Patient Disposition: Home - Self-Care Forms Stand Alone Forms: [facility], Important Visit Information Prescriptions Prescriptions: No Action multivitamin Tablet 1 tab PO DAILY ibuprofen 200 mg Tablet 400 mg PO HS ibuprofen 200 mg Tablet 800 mg PO QAM Referrals Referrals: PCP,NO [Primary Care Provider] -
[2023-09-19] MEDS: SODIUM CHLORIDE 0.9% 1,000 ML IV SCH ×2 (01:43→11:28)
[2023-09-19 01:46] LABS: Basophils # (auto) 0.04 K/uL (0.00-0.20); Basophils % (auto) 0.4 %; Eosinophils # (auto) 0.51 K/uL (0.00-0.50); Eosinophils % (auto) 4.6 %; Hematocrit (blood only) 40.7 % (37.0-47.0); Immature Granulocytes # (auto) 0.04 K/uL (0.01-0.20); Immature Granulocytes % (auto) 0.4 %; Lymphocytes # (auto) 2.57 K/uL (1.20-3.40); Lymphocytes % (auto) 23.3 %; Mean Corpuscular Hgb Conc 34.4 g/dL (32.0-36.0); Mean Corpuscular Volume 84.4 fL (80.0-100.0); Mean Platelet Volume 10.6 fL (9.4-12.4); Monocytes # (auto) 0.82 K/uL (0.11-0.59); Monocytes % (auto) 7.4 %; Neutrophils # (auto) 7.06 K/uL (1.40-6.50); Neutrophils % (auto) 63.9 %; Platelet Count 305 K/uL (130-400); RDW Coefficient of Variation 12.4 % (11.5-14.5); RDW Standard Deviation 37.5 fL (36.4-46.3); Red Blood Count 4.82 M/uL (4.20-5.40); White Blood Count 11.04 K/ul (4.8-10.8)
[2023-09-19 01:57] LABS: Pregnancy Test, Serum Negative (Negative)
[2023-09-19 01:59] LABS: Albumin Globulin Ratio 1.4 (0.9-2); Albumin Level 4.3 gm/dl (3.4-5.0); BUN Creatinine Ratio 20.8 (10-20); Bilirubin,Total 0.5 mg/dl (0.2-1.0); Calcium 9.3 mg/dl (8.6-10.3); Creatinine Clr Calc Pharmacy 142.8 ml/min; Est GFR (Non-African American) 101.9 ml/min; Globulin 3.1 gm/dl (2.5-4.0); Potassium 3.6 mmol/L (3.5-5.1); Total Protein 7.4 gm/dl (6.0-8.3)
[2023-09-19 02:25] LABS: Appearance Urine Clear (Clear); Bilirubin Urine Negative (Negative); Blood Urine Negative (Negative); Color Urine Yellow; Glucose Urine UA Negative (Negative); Ketones Urine Negative (Negative); Leukocyte Esterase Urine Negative (Negative); Nitrite Urine Negative (Negative); Protein Urine Negative (Negative); Specific Gravity Urine 1.018 (1.000-1.030); Urobilinogen Urine Negative (Negative); pH Urine 5.5 (4.5-7.5)
[2023-09-19 02:30] LABS: Prothrombin Time 10.7 Seconds (9.0-12.0)
[2023-09-19] MEDS ORDERED: HYDROmorphone INJ 0.5 MG/0.5 ML SYR IV PRN ×2 (03:24→11:47)
--- NOTE | 2023-09-19 08:13 | Magnetic Resonance Report ---
MRI OF THE LUMBAR SPINE WITHOUT CONTRAST CLINICAL HISTORY: Increased low back pain, paresthesias, unable to walk. COMPARISON STUDY: No previous studies for comparison. TECHNIQUE: Utilizing a 1.5 Katerine magnet and dedicated coil, multiplanar, multiecho imaging of the [facility] spine was performed without IV contrast. FINDINGS: For purposes of numbering on this exam, the L5-S1 disc space is assigned to axial image 26 of 28. Ali gnment of the lumbar spine is anatomic. Vertebral body heights are maintained. No intracanalicular ma ss or fluid collection is present. Conus terminates at the upper L1 level. Paravertebral soft tissues are unremarkable. L1-2: The central canal and neural foramen are patent. L2-3: There is minimal disc bulge with a tiny central disc protrusion. The central canal and neural f oramen are patent. L3-4: There is mild disc bulge with a small central disc protrusion with annular tear. There is mild facet arthrosis. Central canal is patent. There is mild narrowing of the bilateral neural foramen. L4-5: There is a 2.5 x 1 6 x 1.3 cm right paracentral disc extrusion which results in severe narrowin g of the right lateral recess and moderate to severe central canal stenosis. Patent AP diameter of th e canal is 5.8 mm. There is significant mass effect upon the descending right L5 nerve root. There is moderate bilateral neural foraminal stenosis at this level. Moderate facet arthrosis is also present . L5-S1: The central canal and neural foramen are patent. IMPRESSION: 1. Large right paracentral disc extrusion at L4-5 which results in severe narrowing of the right late ral recess with significant mass effect upon the descending right L5 nerve root. This also results in moderate to severe narrowing of the central canal and moderate narrowing of the right neural foramen . 2. Small central disc protrusion with disc bulge at L3-L4. Tiny central disc protrusion at L2-L3. 3. Mild multilevel facet arthrosis. ACT 112: Negative or not required by law. Electronically signed by: Merlin Child M.D. 09/19/2023 8:11 AM
[2023-09-19] MEDS ORDERED: ONDANSETRON INJ 2 MG/ML 2 ML VIAL IV STA (08:32)
--- NOTE | 2023-09-19 11:09 | History & Physical Report ---
Date of Service September 19, 2023 Assessment & Plan (1) Lumbar radiculopathy: Plan: MRI lumbar spine demonstrates massive disc herniation at all 4 L5 on the right with a fragment migrating caudally. There is foraminal encroachment as well. As it extends out into the L4-L5 foramen on the right underneath the facet. There is evidence of significant Modic changes to the inferior endplate of L4. There is modest is protrusion degenerative changes L3-L4. Plan at this time and leg discussed today with the patient and her reviewing MRI findings and clinical presentation. We reviewed all of her options. Surgery is of course reasonable in light of her presentation progressive neuro deficit and requirements for IV narcotics. It would require a complete decompression and fusion at L4-5. It would be she would require an aggressive facetectomy to ad equately decompress the exiting nerve root creating iatrogenic instability and subsequently requiring fusion. Risk benefits pros cons alternatives were outlined detail. Risk include but not limited to anesthesia blindness stroke paralysis nerve damage blood loss requiring transfusion infection requiring reoperation benefits of the marked improvement of her radicular pain and in time improvement of her neuro deficit. At this time we will make her n.p.o. after midnight will plan for surgery as soon as possible. History of Present Illness Chief Complaint: Severe back and right leg pain Primary Care Provider: NO PCP This is a 43-year-old female has had a history of chronic persistent back and intermittent sciatica pain for several years. Spine management intermittent anti-inflammatory medications and steroids and physical as well as technical healthcare consultant. Recently however she had an event where she sneezed and had severe onset of right leg pain and inability to ambulate. The pain is incapacitating limiting her ability to stand walk and use the bathroom. She is most comfortable lying in the prone position. Left lower extremity is asymptomatic at this time. IV narcotic pain medicines providing minimal to no relief. Allergies Allergy/AdvReac Type Severity Reaction Status Date / Time morphine AdvReac Agitated Verified 09/19/23 01:48 Home Medications Medication Instructions Recorded Confirmed Type ibuprofen 200 mg tablet 400 mg PO HS Pain 10/10/20 09/19/23 History multivitamin 1 tab PO DAILY 10/10/20 09/19/23 History ibuprofen 200 mg tablet 800 mg PO QAM 09/19/23 09/19/23 History Past Med/Surg History Medical History Finger amputation, no complication Family History Other Hypertension Social History Smoking Status: Never smoker Hx Alcohol Use: No Hx Substance Use: No Preferred Language: Nigerian Communication Ability: Effective Poker Room Manager Required: No Beliefs That Will Affect Care: None marital status: Current Living Situation: Spouse Feels Safe at Home: Yes Assistive Devices: None Physical Exam Physical Exam: On exam the patient is in obvious distress.. She demonstrates marked tension signs straight leg raising on the right with contralateral signs on the left. There is obvious weakness to the right foot with 3+/5 dorsiflexion extensor houses longus compared to 5/5 on the left. Sensory appears to be diminished on the right compared to left. Results & Data Results & Data Vital Signs (Past 12 Hours) Vital Signs Temp Pulse Pulse Resp BP BP Pulse Ox 09/19/23 08:00 69 18 164/92 H 95 09/19/23 06:00 68 18 177/109 H 95 09/19/23 05:02 88 19 168/95 H 96 09/19/23 04:00 78 16 147/97 H 96 09/19/23 03:00 67 15 160/102 H 94 09/19/23 02:00 71 16 95 09/19/23 01:30 96 09/19/23 01:02 87 20 97 09/19/23 01:02 87 09/19/23 00:54 36.3 C L 89 17 173/118 H 97 09/19/23 00:54 36.8 C 88 14 173/118 H 97 O2 Del Method 09/19/23 08:00 Room Air 09/19/23 06:00 Room Air 09/19/23 05:02 Room Air 09/19/23 04:00 Room Air 09/19/23 03:00 Room Air 09/19/23 02:00 09/19/23 01:30 09/19/23 01:02 09/19/23 01:02 09/19/23 00:54 Room Air 09/19/23 00:54 Room Air Code Status & VTE Plan VTE Prophylaxis Plan VTE Prophylaxis will be ordered: Yes
[2023-09-19] MEDS ORDERED: NALOXONE HCL 0.4 MG/1 ML VIAL/CARP IV PRN (11:47)
[2023-09-19] MEDS ORDERED: ONDANSETRON 4 MG OD TAB PO PRN (11:47)
[2023-09-19] MEDS ORDERED: PROMETHAZINE HCL 12.5 MG in SODIUM CHLORIDE 0.9% 50 ML IV PRN (11:47)
[2023-09-19] MEDS ORDERED: ACETAMINOPHEN 1,000 MG/100 ML VIAL IV PRN (11:47)
[2023-09-19] MEDS ORDERED: ACETAMINOPHEN 500 MG TAB PO PRN (11:47)
[2023-09-19] MEDS ORDERED: oxyCODONE HCL IR 5 MG TAB (IMMEDIATE RELEASE) PO PRN (11:47)
[2023-09-19] MEDS ORDERED: METOCLOPRAMIDE HCL INJ 5 MG/ML 2 ML VIAL IV PRN (11:47)
[2023-09-19] MEDS ORDERED: LORazepam 0.5 MG in SYRINGE 0.25 ML IV PRN (11:47)
[2023-09-19] MEDS ORDERED: LORazepam 0.5 MG TAB PO PRN (11:47)
[2023-09-19] MEDS: HYDROmorphone INJ 1 MG/ML SYRINGE IV PRN ×2 (13:28→19:13)
[2023-09-19] MEDS: LACTATED RINGER'S 1,000 ML IV SCH ×2 (14:35→19:14)
[2023-09-19] MEDS ORDERED: POLYETHYLENE (MIRALAX) 17 GM PACK PO PRN (15:13)
--- NOTE | 2023-09-19 15:13 | Consultation ---
Date of Consultation September 19, 2023 Assessment & Plan (1) Lumbar radiculopathy: Plan Lumbar radiculopathy Patient had problems of low back pain, was undergoing chiropractic services/physical therapy/using NSAIDs. Acute worsening on , affecting her activities of daily living. Admitting MRI lumbar spine: Large right paracentral disc extrusion at L4-5 which results in severe narrowing of the right lateral recess with significant mass effect upon the descending right L5 nerve root. Patient complains low back pain with radicular symptoms more on the RLE than LLE. Admitted under orthospine, plan for surgery tomorrow. Pain management, DVT prophylaxis, PT/OT per primary team. Bowel regimen as patient will be on pain medications. Hypertensive urgency: Blood pressure fairly elevated, likely secondary to pain. Should improve with pain management. Will put in as needed blood pressure medication. DVT prophylaxis: SCDs for now, no chemoprophylaxis as surgery tomorrow. Full code History of Present Illness Requesting Physician: Dr. Ward Reason for Consultation: Medical management Attending Physician: Jeromy Ward, DO History of Present Illness 43-year-old lady with PMH of prediabetes, no other significant PMH and no home medications was a consult to medicine service for medical management, pending back surgery. Per patient, she has been dealing with low back pain and undergoi ng chiropractic services/physical therapy/using NSAIDs but not much of help. Patient reports she was working on on her feet (working on table, standing on feet), when she sneezed very hard and then started very severe worsening of her already progressing lower back pain. The pain was so severe that caused her vomiting. Also she was not able to carry out her activities of daily living. Also she reports she has not been able to void completely (was told by ER in [place]) but is not incontinent of bowel or bladder. Has been peeing though. Also she has not moved bowels since , partly because she has not eaten good meals after the pain worsened. Patient denies febrile illness, flulike illness, chest pain, headache, dizziness. Patient denies using tobacco, alcohol, recreational drugs. Full code Allergies Allergy/AdvReac Type Severity Reaction Status Date / Time morphine AdvReac Agitated Verified 09/19/23 01:48 Home Medications Medication Instructions Recorded Confirmed Type ibuprofen 200 mg tablet 400 mg PO HS Pain 10/10/20 09/19/23 History multivitamin 1 tab PO DAILY 10/10/20 09/19/23 History ibuprofen 200 mg tablet 800 mg PO QAM 09/19/23 09/19/23 History Patient History Medical History Finger amputation, no complication Family History Other Hypertension Social History Smoking Status: Never smoker Hx Alcohol Use: No Hx Substance Use: No Preferred Language: Japanese Communication Ability: Effective Air Hole Driller Required: No Beliefs That Will Affect Care: None marital status: Current Living Situation: Spouse Other Information That Helps Us Care for You: No Feels Safe at Home: Yes Safety Concerns: Feels Safe At This Time Assistive Devices: None Review of Systems Review of Systems: Negative otherwise mentioned in HPI. Physical Exam Physical Exam: GENERAL: Alert and oriented x3. NAD, on RA. Obese Class III. was lying prone on bed HEENT: No pallor, no icterus. Pupils equal, round and reactive to light. Oral mucosa moist. NECK: No JVD, no neck masses. HEART: S1 and S2 heard. Regular rate and rhythm. No murmur, no gallop. RESPIRATORY SYSTEM: Normal AP diameter. No accessory muscle use. No wheezing, no crackles. ABDOMEN: Soft, bowel sounds present, nontender, no distention. CENTRAL NERVOUS SYSTEM: No facial droop. Speech is clear. Obeys simple commands. Moves extremities. EXTREMITIES: No edema, no erythema seen. Lower back nontender to palpation. SLRT not possible as pt prone due to comfort reason. Results & Data Vital Signs (Past 12 Hours) Vital Signs Temp Pulse Pulse Resp BP BP Pulse Ox 09/19/23 14:36 81 18 97 09/19/23 13:31 36.6 C 77 18 181/113 H 97 09/19/23 11:38 81 16 135/99 97 09/19/23 08:00 69 18 164/92 H 95 09/19/23 06:00 68 18 177/109 H 95 09/19/23 05:02 88 19 168/95 H 96 09/19/23 04:00 78 16 147/97 H 96 O2 Del Method 09/19/23 14:36 Room Air 09/19/23 13:31 Room Air 09/19/23 11:38 Room Air 09/19/23 08:00 Room Air 09/19/23 06:00 Room Air 09/19/23 05:02 Room Air 09/19/23 04:00 Room Air
[2023-09-19] MEDS ORDERED: hydrALAZINE HCL 25 MG TAB PO PRN (15:16)
[2023-09-19] MEDS: GABAPENTIN 300 MG CAP PO SCH ×2 (16:59→21:37)
[2023-09-19] MEDS: ONDANSETRON INJ 2 MG/ML 2 ML VIAL IV PRN (19:30)
[2023-09-19] MEDS: DOCUSATE SODIUM 100 MG CAP PO SCH (21:36)
[2023-09-20] MEDS: ONDANSETRON INJ 2 MG/ML 2 ML VIAL IV PRN ×2 (03:19→11:28)
[2023-09-20] MEDS: DOCUSATE SODIUM 100 MG CAP PO SCH ×2 (08:13→21:20)
[2023-09-20] MEDS: GABAPENTIN 300 MG CAP PO SCH ×3 (08:13→21:20)
[2023-09-20] MEDS: LACTATED RINGER'S 1,000 ML IV SCH ×2 (08:14→18:39)
[2023-09-20] MEDS: HYDROmorphone INJ 1 MG/ML SYRINGE IV PRN (11:28)
--- NOTE | 2023-09-20 12:14 | Hospitalist Progress Note ---
Date of Service September 20, 2023 Assessment & Plan (1) Lumbar radiculopathy: Plan Lumbar radiculopathy Patient had problems of low back pain, was undergoing chiropractic services/physical therapy/using NSAIDs. Acute worsening on , affecting her activities of daily living. Admitting MRI lumbar spine: Large right paracentral disc extrusion at L4-5 which results in severe narrowing of the right lateral recess with significant mass effect upon the descending right L5 nerve root. At presentation, patient complains low back pain with radicular symptoms more on the RLE than LLE. Admitted under orthospine, plan for surgery today. Pain management, DVT prophylaxis, PT/OT per primary team. Bowel regimen as patient will be on pain medications. Hypertensive urgency: Blood pressure fairly elevated, likely secondary to pain. Should improve with pain management. Continue with as needed blood pressure medication. Morbid obesity: BMI 43.9, patient counseled on lifestyle modification and weight reduction. Patient voiced understanding. DVT prophylaxis: SCDs for now, no chemoprophylaxis as surgery tomorrow. Full code Admission and Anticipated Discharge Date Admission Date: September 19, 2023 Subjective Patient was seen and examined at bedside. Patient was lying in bed, on room air, resting comfortably, not in any acute distress. Patient reports pain under control with pain medications. Blood pressure is also under control. Patient denies other review of symptoms. Physical Exam Physical Exam: GENERAL: Alert and oriented x3. NAD, on RA. Obese Class III. HEENT: No pallor, no icterus. Pupils equal, round and reactive to light. Oral mucosa moist. NECK: No JVD, no neck masses. HEART: S1 and S2 heard. Regular rate and rhythm. No murmur, no gallop. RESPIRATORY SYSTEM: Normal AP diameter. No accessory muscle use. No wheezing, no crackles. ABDOMEN: Soft, bowel sounds present, nontender, no distention. CENTRAL NERVOUS SYSTEM: No facial droop. Speech is clear. Obeys simple commands. Moves extremities. EXTREMITIES: No edema, no erythema seen. Lower back nontender to palpation. Results & Data Results & Data Vital Signs (Past 12 Hours) Vital Signs Temp Pulse Resp BP Pulse Ox O2 Del Method 09/20/23 07:50 36.9 C 72 16 155/95 H 96 Room Air
[2023-09-20] MEDS ORDERED: MIDAZOLAM HCL 1 MG/ML 2ML VIAL ONE (13:53)
[2023-09-20] MEDS ORDERED: fentaNYL citrate PF 100 MCG/2 ML VIAL ONE (13:53)
--- NOTE | 2023-09-20 13:54 | Anesthesiology Consultation ---
Date of Service September 20, 2023 Assessment & Plan Chart Review Chart Review: Acceptable Risk for Surgery and Patient NOT seen in Pre Admission Testing Consults Requested none ASA ASA3 Proposed Anesthesia Anesthesia Type: General History Surgery Operation Date: 09/20/23 07:00 Proposed Procedures p L4-L5 Decompression Fusion - Jeromy Ward DO Height/Weight Height: 5 ft 8 in Weight: 131 kg Allergies Allergy/AdvReac Type Severity Reaction Status Date / Time morphine AdvReac Agitated Verified 09/19/23 01:48 Medications Home Medications Medication Instructions Recorded Confirmed Last Taken ibuprofen 200 mg tablet 400 mg PO HS Pain 10/10/20 09/19/23 09/19/23 multivitamin 1 tab PO DAILY 10/10/20 09/19/23 Unknown ibuprofen 200 mg tablet 800 mg PO QAM 09/19/23 09/19/23 09/18/23 Active Medications Generic Name Dose Route Start Last Admin Trade Name Freq PRN Reason Stop Dose Admin Acetaminophen 1,000 mg 09/19/23 11:47 09/20/23 08:12 Acetaminophen 500 Mg Tab PO 10/19/23 11:46 1,000 mg Q8H PRN Administration MILD Pain Scale 1,2,3 & Pre PT Docusate Sodium 100 mg 09/19/23 21:00 09/20/23 08:13 Docusate Sodium 100 Mg Cap PO 10/19/23 20:59 100 mg BID YANIRA Administration Gabapentin 300 mg 09/19/23 14:00 09/20/23 08:13 Gabapentin 300 Mg Cap PO 10/19/23 13:59 300 mg TID YANIRA Administration Hydralazine HCl 25 mg 09/19/23 15:16 09/19/23 09:35 Hydralazine Hcl 25 Mg Tab PO 10/19/23 15:29 25 mg Q8H PRN Administration Hypertension Hydromorphone HCl 0.5 mg 09/19/23 03:24 09/19/23 08:36 Hydromorphone Inj 0.5 Mg/0.5 Ml Syr IV 10/03/23 03:23 0.5 mg Q15M PRN Administration Pain Hydromorphone HCl 0.5 mg 09/19/23 11:47 09/20/23 03:20 Hydromorphone Inj 0.5 Mg/0.5 Ml Syr IV 10/03/23 11:46 0.5 mg Q3H PRN Administration MOD pain (scale 4-6) & Pre PT Hydromorphone HCl 1 mg 09/19/23 11:47 09/20/23 11:28 Hydromorphone Inj 1 Mg/Ml Syringe IV 10/03/23 11:46 1 mg Q3H PRN Administration severe pain (scale 7-10) Lactated Ringer's 1,000 mls @ 75 mls/hr 09/19/23 11:47 09/20/23 08:14 Lr IV 10/19/23 11:46 75 mls/hr .[id number] YANIRA Administration Miscellaneous 1 each 09/19/23 21:00 09/19/23 20:34 Remove Lidoderm Patch N/A 10/19/23 20:59 1 each DAILY@2100 YANIRA Administration Ondansetron HCl 4 mg 09/19/23 11:47 09/20/23 11:28 Ondansetron Inj 2 Mg/Ml 2 Ml Vial IV 10/19/23 11:46 4 mg Q6H PRN Administration Nausea &/or Vomiting NPO Last Intake of Fluids Comment: Sips with meds Past Medical History Medical History Finger amputation, no complication morbid obesity Exercise / Class Metabolic Activity II 4-5 Yardwork/Stairs/Walk up hill Past Family History Family History Other Hypertension Past Anesthesia History No Hx of Anesthesia Complications and No Family Hx of Anesthesia Complications History of PONV No Hx of PONV and No Hx of Motion Sickness Social History Smoking Status: Never smoker Hx Alcohol Use: No Hx Substance Use: No substance use type: does not use Physical Exam Vital Signs Last Vital Signs Temp 36.9 C 09/20/23 07:50 Pulse 72 09/20/23 07:50 Resp 16 09/20/23 07:50 BP 155/95 H 09/20/23 07:50 Pulse Ox 96 09/20/23 07:50 O2 Del Method Room Air 09/20/23 07:50 Testing Laboratory Results 09/19/23 01:25 09/19/23 01:25 PT 10.7 Seconds (9.0-12.0) 01/01/24 01:25 INR 1.0 (0.9-1.1) 09/19/23 01:25 Urine Color Yellow 09/19/23 02:15 Urine Appearance Clear (Clear) 09/19/23 02:15 Urine pH 5.5 (4.5-7.5) 09/19/23 02:15 Ur Specific [place] 1.018 (1.000-1.030) 09/19/23 02:15 Urine Protein Negative (Negative) 09/19/23 02:15 Urine Glucose (UA) Negative (Negative) 09/19/23 02:15 Urine Ketones Negative (Negative) 09/19/23 02:15 Urine Nitrite Negative (Negative) 09/19/23 02:15 Ur Leukocyte Esterase Negative (Negative) 09/19/23 02:15 Electrocardiogram Date: 10/10/20 Findings: + NSR @ (@ 93;) and + NSST changes
[2023-09-20] MEDS ORDERED: LACTATED RINGER'S 1,000 ML IV SCH (14:30)
[2023-09-20] MEDS ORDERED: ATROPINE SULFATE 0.1 MG/ML 10ML SYR IV PRN (14:44)
[2023-09-20] MEDS ORDERED: fentaNYL citrate PF 100 MCG/2 ML VIAL IV PRN (14:44)
[2023-09-20] MEDS ORDERED: PROMETHAZINE HCL 6.25 MG in SODIUM CHLORIDE 0.9% 50 ML IV PRN (14:44)
[2023-09-20] MEDS ORDERED: ONDANSETRON INJ 2 MG/ML 2 ML VIAL IV PRN ×2 (14:44→18:31)
[2023-09-20] MEDS ORDERED: HYDROmorphone INJ 1 MG/ML SYRINGE IV PRN ×2 (14:44→18:31)
[2023-09-20] MEDS ORDERED: ePHEDrine sulfate 50 MG/ML AMP IV PRN (14:44)
--- NOTE | 2023-09-20 14:52 | History & Physical Bridge Note ---
Date of Service September 20, 2023 History & Physical Bridge Note I have examined the patient, reviewed the History & Physical and in the interval since the performance of the History & Physical I have noted the following changes of clinical significance: Patient has failed physical therapy has clear neurologic compromise. She is requiring IV narcotic medication to control her symptoms. Subsequently I am recommending emergent decompression and fusion L4- L5.
[2023-09-20] MEDS ORDERED: BUPIVACAINE/EPINEPHRINE 0.25% 1:200,000 30 ML VIAL ONE (15:05)
[2023-09-20] MEDS ORDERED: ceFAZolin 330 MG/ML 1 GM VIAL ONE (15:06)
[2023-09-20] MEDS ORDERED: ROCURONIUM BROMIDE 10 MG/ML 5 ML VIAL IV ONE ×2 (15:17→16:00)
[2023-09-20] MEDS ORDERED: ONDANSETRON INJ 2 MG/ML 2 ML VIAL ONE (15:17)
[2023-09-20] MEDS ORDERED: PROPOFOL IV EMULSION 10 MG/ML 20 ML VIAL IV ONE (15:17)
[2023-09-20] MEDS ORDERED: LIDOCAINE 2% 2 ML VIAL/AMP(20MG/ML) INFIL ONE (15:17)
[2023-09-20] MEDS ORDERED: GLYCOPYRROLATE 0.2 MG/ML VIAL ONE ×2 (15:17→16:18)
[2023-09-20] MEDS ORDERED: DEXAMETHASONE SOD INJ 4 MG/ML VIAL ONE (15:17)
[2023-09-20] MEDS ORDERED: diphenhydrAMINE 50 MG/ML VIAL ONE ×2 (15:17→16:01)
[2023-09-20] MEDS ORDERED: NEOSTIGMINE METHYLSULFATE 1 MG/ML 10ML VIAL ONE (16:18)
[2023-09-20] MEDS ORDERED: FLOSEAL HEMOSTATIC MATRIX 10ML TOP ONE (16:32)
[2023-09-20] MEDS ORDERED: ACETAMINOPHEN 1000 MG/100 ML IV IV ONE (16:41)
--- NOTE | 2023-09-20 16:55 | Operative Report ---
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 #2 posterior spinal fusion L4-5. #3 please posterior instrumentation L4-5. #4 interbody fusion L4-5. #5 placement of Spira 15 x 26 mm at L4-5. #6 placement locally harvested morselized autograft in the posterior gutters. #7 placement of Morpheus bone graft on the interbody cage and infuse collagen sponge by mass graft in the posterior lateral gutters. Surgeon Jeromy Ward, DO Dock Associate Nicole Sylvester Estimated Blood Loss 100 Findings See Below The patient is 5 foot 8 weighing 131 kg with a BMI in excess of 43. Patient's body mass did contribute to significant difficulty with patient positioning exposure and procedure itself and at least 50% increased to the operative time. Specimens None Indications This is a 43-year-old female who presents the emergency room with marked client status inability ambulate and progressive weakness to the right lower extremity. Patient was in extreme pain and is here for emergent decompression and fusion. Description of Procedure Patient was met with identified informed consent obtained. Patient was then taken to the operative suite underwent ablation placed in a prone position on the Vinny table on top of the Arnold frame. All bony promises well-padded eyes inspected to ensure no external pressure placed upon the. This point lumbar spine is prepped and draped in normal sterile fashion. Sharp dissection with the assistance of Bovie cautery form down to and exposing the lamina and transverse processes of L4-5 bilaterally. Caudal cephalad fashion complete laminectomy of L4 partial laminectomy L3 was performed including medial facetectomies and foraminotomies addressing stenosis as well as addressing the massive fragment of disc material that is migrated caudally on the right creating severe neural compression. After decompression pedicle screws were placed in L4-5 bilaterally with assistance of fluoroscopy and the appropriately sized blue placed. By way of a transforaminal approach on the right complete discectomy of L4 - L5 was performed endplates guarded to subcortical bone and a 15 x 26 mm prior cage with I factor tapped in position. The rods were then compressed locked in final position bilaterally. The transverse processes of L4-5 burred to subcortical bleeding bone. Infuse collagen sponge combined with master graft and local autograft placed in the posterior gutters. 15 round FLASH drain inserted. The incision was then closed with 1 Vicryl to fascia 2-0 Vicryl subcutaneously and 4 Monocryl for final skin closure. Steri-Strips sterile dressings placed. Patient waken taken PACU stable condition. Please note spinal cord monitoring was utilized at the procedure no changes noted. Lastly Nicole Sylvester was present at the entire surgery and all the patient positioning complex portion of the surgery and final skin closure. I attest to the content of the Intraoperative Record and any orders documented therein. Any exceptions are noted below.
--- NOTE | 2023-09-20 17:31 | XRay Report ---
XR lumbar spine 2V HISTORY: 43 years-old Female OR COUNT lumbar spine surgery COMPARISON: Fluoroscopic images of the lumbar spine of same day TECHNIQUE: 2 spot fluoroscopic images of the lumbar spine on the AP view a surgical sponge overlies t he L3-L4 disc space. FINDINGS/IMPRESSION: Interbody blue and screw fusion hardware of the lower lumbar spine which appears to be at the L4-L5 le juliana. Study is overall limited secondary to underpenetration of the film. On the lateral image a surgical sponge is noted anterior to the lower thoracic spine. On the AP film, a linear radiopaque surgical sponge overlies the L3-L4 disc space. ACT 112: Negative or not required by law. The above report was generated using voice recognition software. It may contain grammatical, syntax o r spelling errors. Electronically signed by: Jose Hopkins M.D. 09/20/2023 5:29 PM
--- NOTE | 2023-09-20 18:04 | Fluoroscopy Report ---
FL lumbar spine 2-3V CLINICAL HISTORY: L4-L5 DECOMPRESSION AND FUSION COMPARISON STUDY: MRI lumbar spine 09/19/2023 FLUOROSCOPY TIME: 19 seconds FLUOROSCOPY IMAGES: 2 EXPOSURE DOSE: 19.58 mGy FINDINGS: Discectomy with posterior interbody rods and screw fusion at L4-L5. The hardware appears in tact. No unexpected opaque foreign bodies identified. No acute fracture is seen. IMPRESSION: Fluoroscopic assistance as above. ACT 112: Negative or not required by law. Electronically signed by: Jose Hopkins M.D. 09/20/2023 6:02 PM
[2023-09-20] MEDS ORDERED: PROMETHAZINE HCL 12.5 MG in SODIUM CHLORIDE 0.9% 50 ML IV PRN (18:31)
[2023-09-20] MEDS ORDERED: FAMOTIDINE 20 MG TAB PO PRN (18:31)
[2023-09-20] MEDS ORDERED: LORazepam 0.5 MG TAB PO PRN (18:31)
[2023-09-20] MEDS ORDERED: oxyCODONE HCL IR 5 MG TAB (IMMEDIATE RELEASE) PO PRN (18:31)
[2023-09-20] MEDS ORDERED: METOCLOPRAMIDE HCL INJ 5 MG/ML 2 ML VIAL IV PRN (18:31)
[2023-09-20] MEDS ORDERED: MAGNESIUM HYDROXIDE SUSP 30 ML UDC PO PRN (18:31)
[2023-09-20] MEDS ORDERED: ALUMINUM/MAGNESIUM SUSP 30 ML UDC PO PRN (18:31)
[2023-09-20] MEDS ORDERED: diphenhydrAMINE Capsule 25 MG CAP PO PRN (18:31)
[2023-09-20] MEDS ORDERED: ACETAMINOPHEN 1,000 MG/100 ML VIAL IV PRN (18:31)
[2023-09-20] MEDS ORDERED: ACETAMINOPHEN 500 MG TAB PO PRN (18:31)
[2023-09-20] MEDS ORDERED: NALOXONE HCL 0.4 MG/1 ML VIAL/CARP IV PRN (18:31)
[2023-09-20] MEDS ORDERED: SOD PHOSPHATE/SOD BIPHOSPHATE ENEMA 132 ML BTL PR PRN (18:31)
[2023-09-20] MEDS ORDERED: DO NOT ADMINISTER PNEUMOCOCCAL VACCINE PRN (18:31)
[2023-09-20] MEDS ORDERED: DO NOT ADMINISTER FLU VACCINE PRN (18:31)
[2023-09-20] MEDS ORDERED: ONDANSETRON 4 MG OD TAB PO PRN (18:31)
[2023-09-20] MEDS ORDERED: LORazepam 0.5 MG in SYRINGE 0.25 ML IV PRN (18:31)
[2023-09-20] MEDS ORDERED: HYDROmorphone INJ 0.5 MG/0.5 ML SYR IV PRN (18:31)
[2023-09-20] MEDS ORDERED: traMADol HCL 50 MG TABLET PO PRN (18:31)
[2023-09-20] MEDS ORDERED: bisacodyL 10 MG SUPP PR PRN (18:31)
[2023-09-20] MEDS ORDERED: hydrOXYzine HCl 25 MG TAB PO PRN (18:31)
--- NOTE | 2023-09-20 18:43 | Anesthesiology Progress Note ---
Date of Service September 20, 2023 Anesthesia Post Procedure Vital Signs Vital Signs: Temp Pulse Pulse Resp BP Pulse Ox O2 Del Method 09/20/23 18:33 97.7 F 77 16 146/87 H 94 Nasal Cannula 09/20/23 18:05 72 17 146/83 H 91 Nasal Cannula 09/20/23 17:55 80 11 L 169/98 H 96 Nasal Cannula 09/20/23 17:45 76 13 156/91 H 98 Oxymask 09/20/23 17:35 75 12 170/94 H 96 Oxymask 09/20/23 17:25 98.6 F 82 20 171/88 H 96 Oxymask 09/20/23 14:40 98.4 F 80 20 160/105 H 95 Room Air 09/20/23 07:50 98.4 F 72 16 155/95 H 96 Room Air 09/19/23 20:28 98.2 F 76 14 164/111 H 96 Room Air O2 Flow Rate 09/20/23 18:33 2 09/20/23 18:05 2 09/20/23 17:55 2 09/20/23 17:45 5 09/20/23 17:35 5 09/20/23 17:25 5 09/20/23 14:40 09/20/23 07:50 09/19/23 20:28 Pain Intensity Back: Pain Intensity: 8 Transfer of Care Handoff Completed per policy Notes Mental Status: alert / awake / arousable and participated in evaluation Patient Amnestic to Procedure: Yes Nausea / Vomiting: adequately controlled Pain: adequately controlled Airway Patency, RR, SpO2: stable & adequate BP & HR: stable & adequate Hydration State: stable & adequate Anesthetic Complications: no major complications apparent and Pt Satisfied with anesthetic care
[2023-09-20] MEDS: DOCUSATE SODIUM/SENNA 50/8.6MG TAB PO SCH (21:20)
[2023-09-20] MEDS: KETOROLAC 30 MG/ML VIAL IV SCH (23:53)
[2023-09-20] MEDS: ceFAZolin 2000MG 2,000 MG/15 ML SYR IV SCH (23:53)
[2023-09-21] MEDS: LACTATED RINGER'S 1,000 ML IV SCH (04:54)
[2023-09-21] MEDS: KETOROLAC 30 MG/ML VIAL IV SCH ×3 (05:57→17:07)
[2023-09-21] MEDS: ceFAZolin 2000MG 2,000 MG/15 ML SYR IV SCH (05:57)
[2023-09-21] MEDS: POLYETHYLENE (MIRALAX) 17 GM PACK PO SCH ×2 (05:58→12:12)
[2023-09-21] MEDS: dexAMETHasone 6 MG in SYRINGE 0 ML IV SCH (07:32)
[2023-09-21] MEDS: GABAPENTIN 300 MG CAP PO SCH ×3 (07:32→20:48)
[2023-09-21] MEDS: DOCUSATE SODIUM 100 MG CAP PO SCH ×2 (07:32→20:48)
[2023-09-21 07:45] LABS: Basophils # (auto) 0.03 K/uL (0.00-0.20); Basophils % (auto) 0.3 %; Eosinophils # (auto) 0.05 K/uL (0.00-0.50); Eosinophils % (auto) 0.5 %; Hematocrit (blood only) 37.1 % (37.0-47.0); Hemoglobin 12.6 g/dl (12.0-16.0); Immature Granulocytes # (auto) 0.03 K/uL (0.01-0.20); Immature Granulocytes % (auto) 0.3 %; Lymphocytes # (auto) 2.35 K/uL (1.20-3.40); Lymphocytes % (auto) 24.7 %; Mean Corpuscular Hemoglobin 28.6 pg (25.0-34.0); Mean Corpuscular Volume 84.1 fL (80.0-100.0); Mean Platelet Volume 10.4 fL (9.4-12.4); Monocytes # (auto) 0.81 K/uL (0.11-0.59); Monocytes % (auto) 8.5 %; Neutrophils # (auto) 6.23 K/uL (1.40-6.50); Neutrophils % (auto) 65.7 %; Platelet Count 265 K/uL (130-400); RDW Coefficient of Variation 12.1 % (11.5-14.5); RDW Standard Deviation 37.1 fL (36.4-46.3); Red Blood Count 4.41 M/uL (4.20-5.40)
[2023-09-21 08:10] LABS: BUN Creatinine Ratio 20.3 (10-20); Calcium 8.6 mg/dl (8.6-10.3); Est GFR (African American) 122.7 ml/min; Est GFR (Non-African American) 105.9 ml/min; Potassium 3.3 mmol/L (3.5-5.1)
[2023-09-21] MEDS ORDERED: POTASSIUM CHLORIDE CRTAB 20 MEQ TABCR PO STA (08:29)
--- NOTE | 2023-09-21 14:04 | Hospitalist Progress Note ---
Date of Service September 21, 2023 Assessment & Plan (1) Lumbar radiculopathy: Plan Lumbar radiculopathy Patient had problems of low back pain, was undergoing chiropractic services/physical therapy/using NSAIDs. Acute worsening on , affecting her activities of daily living. Admitting MRI lumbar spine: Large right paracentral disc extrusion at L4-5 which results in severe narrowing of the right lateral recess with significant mass effect upon the descending right L5 nerve root. At presentation, patient complains low back pain with radicular symptoms more on the RLE than LLE. Admitted under orthospine, plan for surgery today. Pain management, DVT prophylaxis, PT/OT per primary team. Bowel regimen as patient will be on pain medications. Hypertensive urgency: Blood pressure fairly elevated, likely secondary to pain. Should improve with pain management. Continue with as needed blood pressure medication. Blood pressure has been better. Morbid obesity: BMI 43.9, patient counseled on lifestyle modification and weight reduction. Patient voiced understanding. DVT prophylaxis: SCDs for now, DVT chemoprophylaxis per primary. Full code Admission and Anticipated Discharge Date Admission Date: September 19, 2023 Subjective Patient was seen and examined at bedside. Patient was sitting up in chair, on room air, resting comfortably, not in any acute distress. Patient reports improvement in her radicular symptoms. Reports operative site pain under control. Patient denies other review of symptoms. Physical Exam Physical Exam: GENERAL: Alert and oriented x3. NAD, on RA. Obese Class III. HEENT: No pallor, no icterus. Pupils equal, round and reactive to light. Oral mucosa moist. NECK: No JVD, no neck masses. HEART: S1 and S2 heard. Regular rate and rhythm. No murmur, no gallop. RESPIRATORY SYSTEM: Normal AP diameter. No accessory muscle use. No wheezing, no crackles. ABDOMEN: Soft, bowel sounds present, nontender, no distention. CENTRAL NERVOUS SYSTEM: No facial droop. Speech is clear. Obeys simple commands. Moves extremities. EXTREMITIES: No edema, no erythema seen. Lower back with clean dressing without soakage. FLASH drain with moderate serosanguineous collection noted. Results & Data Results & Data Vital Signs (Past 12 Hours) Vital Signs Temp Pulse Resp BP Pulse Ox O2 Del Method 09/21/23 07:48 36.8 C 89 16 134/95 95 Room Air 09/21/23 02:44 37.7 C H 91 H 18 159/84 H 96 Room Air
--- NOTE | 2023-09-21 14:09 | Orthopedic Progress Note ---
Date of Service September 21, 2023 Assessment & Plan (1) Lumbar radiculopathy: Plan: This time continue physical therapy monitor FLASH operatively discharge home the next day or so. Admission and Anticipated Discharge Date Admission Date: September 19, 2023 Subjective Patient's back pain is controlled leg pain markedly improved Physical Exam Physical Exam: Patient is much more comfortable. Skin strength testing. Results & Data Vital Signs (Past 12 Hours) Vital Signs Temp Pulse Resp BP Pulse Ox O2 Del Method 09/21/23 07:48 36.8 C 89 16 134/95 95 Room Air 09/21/23 02:44 37.7 C H 91 H 18 159/84 H 96 Room Air Queries Orthopedic Spine Obesity: Yes
[2023-09-21] MEDS: DOCUSATE SODIUM/SENNA 50/8.6MG TAB PO SCH (20:48)
[2023-09-22 08:02] LABS: Hematocrit (blood only) 34.1 % (37.0-47.0); Hemoglobin 11.5 g/dl (12.0-16.0); Mean Corpuscular Hemoglobin 28.9 pg (25.0-34.0); Mean Corpuscular Hgb Conc 33.7 g/dL (32.0-36.0); Mean Corpuscular Volume 85.7 fL (80.0-100.0); Mean Platelet Volume 10.4 fL (9.4-12.4); Platelet Count 235 K/uL (130-400); RDW Coefficient of Variation 12.5 % (11.5-14.5); RDW Standard Deviation 39.3 fL (36.4-46.3); Red Blood Count 3.98 M/uL (4.20-5.40); White Blood Count 8.62 K/ul (4.8-10.8)
[2023-09-22 08:18] LABS: BUN Creatinine Ratio 25.9 (10-20); Calcium 8.4 mg/dl (8.6-10.3); Creatinine Clr Calc Pharmacy 177.3 ml/min; Est GFR (African American) 129.9 ml/min; Est GFR (Non-African American) 112.1 ml/min; Potassium 3.4 mmol/L (3.5-5.1)
[2023-09-22] MEDS ORDERED: POTASSIUM CHLORIDE CRTAB 20 MEQ TABCR PO STA (08:21)
[2023-09-22] MEDS: dexAMETHasone 6 MG in SYRINGE 0 ML IV SCH (09:25)
[2023-09-22] MEDS: GABAPENTIN 300 MG CAP PO SCH ×3 (09:25→19:57)
[2023-09-22] MEDS: DOCUSATE SODIUM 100 MG CAP PO SCH ×2 (09:31→19:58)
--- NOTE | 2023-09-22 11:44 | Orthopedic Progress Note ---
Date of Service September 22, 2023 Assessment & Plan (1) Lumbar disc herniation: Plan: This time we will continue physical therapy monitor FLASH operatively discharge home tomorrow. Admission and Anticipated Discharge Date Admission Date: September 19, 2023 Subjective Back pain controlled leg pain improved Physical Exam Physical Exam: Patient has not been ambulating halls. She is comfortable. Results & Data Vital Signs (Past 12 Hours) Vital Signs Temp Pulse Resp BP Pulse Ox O2 Del Method 09/22/23 07:25 36.6 C 75 18 139/78 96 Room Air Queries Orthopedic Spine Obesity: Yes
--- NOTE | 2023-09-22 16:21 | Hospitalist Progress Note ---
Date of Service September 22, 2023 Assessment & Plan (1) Lumbar radiculopathy: Plan Lumbar radiculopathy Patient had problems of low back pain, was undergoing chiropractic services/physical therapy/using NSAIDs. Acute worsening on , affecting her activities of daily living. Admitting MRI lumbar spine: Large right paracentral disc extrusion at L4-5 which results in severe narrowing of the right lateral recess with significant mass effect upon the descending right L5 nerve root. At presentation, patient complains low back pain with radicular symptoms more on the RLE than LLE. Admitted under orthospine, plan for surgery today. Pain management, DVT prophylaxis, PT/OT per primary team. Bowel regimen as patient will be on pain medications. Acute blood loss anemia: drop in post op Hb level. pt stable, f/u [facility]. Hypertensive urgency: Blood pressure fairly elevated, likely secondary to pain. Should improve with pain management. Continue with as needed blood pressure medication. Blood pressure has been better. Morbid obesity: BMI 43.9, patient counseled on lifestyle modification and weight reduction. Patient voiced understanding. DVT prophylaxis: SCDs for now, DVT chemoprophylaxis per primary. Full code Admission and Anticipated Discharge Date Admission Date: September 19, 2023 Subjective Patient was seen and examined at bedside. Patient not in any acute distress. Working w/ PT. Patient reports improvement in her radicular symptoms. Reports operative site pain under control. Patient denies other review of symptoms. Physical Exam Physical Exam: GENERAL: Alert and oriented x3. NAD, on RA. Obese Class III. HEENT: No pallor, no icterus. Pupils equal, round and reactive to light. Oral mucosa moist. NECK: No JVD, no neck masses. HEART: S1 and S2 heard. Regular rate and rhythm. No murmur, no gallop. RESPIRATORY SYSTEM: Normal AP diameter. No accessory muscle use. No wheezing, no crackles. ABDOMEN: Soft, bowel sounds present, nontender, no distention. CENTRAL NERVOUS SYSTEM: No facial droop. Speech is clear. Obeys simple commands. Moves extremities. EXTREMITIES: No edema, no erythema seen. Lower back with clean dressing without soakage. FLASH drain with moderate serosanguineous collection noted. Results & Data Results & Data Vital Signs (Past 12 Hours) Vital Signs Temp Pulse Resp BP Pulse Ox O2 Del Method 09/22/23 15:08 37.1 C 88 18 146/100 H 97 Room Air 09/22/23 07:25 36.6 C 75 18 139/78 96 Room Air
[2023-09-22] MEDS: DOCUSATE SODIUM/SENNA 50/8.6MG TAB PO SCH (19:58)
[2023-09-23] MEDS: GABAPENTIN 300 MG CAP PO SCH (09:11)
[2023-09-23] MEDS: dexAMETHasone 6 MG in SYRINGE 0 ML IV SCH (09:11)
[2023-09-23] MEDS: DOCUSATE SODIUM 100 MG CAP PO SCH (09:13)
--- NOTE | 2023-09-23 10:10 | Discharge Summary ---
Date of Service September 23, 2023 Admission HPI Per Admitting Provider This is a 43-year-old female has had a history of chronic persistent back and intermittent sciatica pain for several years. Spine management intermittent anti-inflammatory medications and steroids and physical as well as companion caregiver. Recently however she had an event where she sneezed and had severe onset of right leg pain and inability to ambulate. The pain is incapacitating limiting her ability to stand walk and use the bathroom. She is most comfortable lying in the prone position. Left lower extremity is asymptomatic at this time. IV narcotic pain medicines providing minimal to no relief. Principal Diagnosis Lumbar discrimination with neurodeficit Discharge Data Allergies Allergy/AdvReac Type Severity Reaction Status Date / Time morphine AdvReac Agitated Verified 09/19/23 01:48 Consultations 09/19/23 08:04 ED Decision to Admit Stat 09/19/23 11:47 Consult Internal Medicine Routine Procedures Performed Operation Date: 09/20/23 07:00 Actual Procedures p L4-L5 Decompression Fusion(Not Applicable) - Jeromy Ward DO Ordered Studies 09/19/23 03:15 MR lumbar spine wo con Stat 09/20/23 [place] lumbar spine 2-3V Routine Hospital Course (1) Lumbar disc herniation: Patient was admitted with severe radiculopathy and motor deficit. She underwent emergent decompression fusion tolerated as well as negative orthopedic for postoperative. Postoperatively progressed appropriately. FLASH drainage decreasing well. Strength improving. Pain well-controlled. Simply discharged home. Discharge orders instructions from the chart for review. Total Time Total Time Spent Total Time Spent (In Minutes): 20 minutes Discharge Plan Discharge Items Patient Disposition: Home - Self-Care Reason For Visit: LUMBAR DISK HERNIATION Discharge Diagnosis: Lumbar disc herniation with neurologic decline Activity: As commented below Non-emergency contact: Primary Care Provider Call non-emergency contact if: you have any medication questions Follow-up/Referrals: PCP,NO [Primary Care Provider] - Diet: Regular Addtl Attending Provider Instructions: ACTIVITY RECOMMENDATIONS: SELF CARE INSTRUCTIONS AFTER THORACIC/LUMBAR FUSIONS 1. You may walk to your tolerance. It is good exercise for your legs and back. Expect some back and intermittent leg aches and pains. 2. You may perform "counter-top" level activities (make a sandwich, bell with a project, etc.). 3. No bending or lifting of more than 10 pounds or back twisting of any nature (roll like a log when turning in bed). 4. You may ride in a car for 20-30 minutes at a time. No driving until after your first visit with your doctor. 5. Frequent changes of position and restricting sitting to 30 minutes at a time will help limit the amount of back spasms and stiffness you may experience. 6. You may discontinue the use of ambulatory aids (cane, crutches, etc.) once your strength and confidence allow. 7. You may spinner tender the shower and let water strike your incision when you arrive home at least once daily. Do not take a tub bath, sit in a hot tub or go into a swimming pool until after your first recheck in the office. SPECIAL CARE INSTRUCTIONS: VERY IMPORTANT TO READ AND REVIEW A. Your surgical incision has been closed with a cosmetic suture under the skin that will dissolve in about 6 weeks. In 14 days, you can use a pair of clean scissors and cut the suture that is left outside of the skin at the ends of your incision. 1. The small skin tapes can be removed 7 days after surgery if they have not fallen off by that point. 2. You may keep the wound open to air as much as possible to promote healing after post-op day number 5 unless told otherwise by your doctor. 3. If you think the wound looks like it is becoming infected (redness or worsening drainage) and/or you are experiencing fever, chill or worsening back pain and muscle spasms, contact the office so that we may evaluate you as soon as possible. B. Complications are uncommon, but please contact us if you have any signs or symptoms of: 1. wound infection (fever higher than 102.5 degrees F, redness, separation of wound, drainage, or increasing pain from the incision) 2. blood clots in legs (pain, swelling, redness and warmth in legs) 3. urinary tract infection (fever higher than 102.5 degrees F, burning upon urination or increased frequency of urination) 4. nerve problems (inability to walk on your toes or heels, numbness, loss of bowel or bladder control) 5. any other symptoms that concern you C. Please call the office at if you have any concerns or questions about your operation or recovery. D. No smoking! Smoking drastically decreases the chance of a solid fusion. E. Do not take any anti-inflammatory medications (Indocin, Advil, Motrin, Aspirin, Naprosyn, etc.) as these may inhibit the chance of a solid fusion. Tylenol is okay to take for pain. MANAGING PAIN AFTER SPINAL SURGERY 1. Narcotic medication is intended for short-term use and will be provided for surgical pain. Surgical pain usually lasts for a period of 4-6 weeks. Narcotic medication includes Percocet, Vicodin, Darvocet, Tylenol #3 or Lortab. 2. Longer-term pain is more appropriately treated with non-narcotic medication such as Tylenol ES. 3. Muscle spasm is not appropriately treated with narcotics. Muscle relaxers such as Soma, Flexeril or Skelaxin can be used along with Tylenol ES. 4. Remember that we all live with some "aches and pains". This is not unusual or uncommon after an injury or as we get older. a. Back pain is expected and may include muscle spasms for 4 to 6 weeks after surgery. The pain should gradually improve. If the pain worsens for no apparent reason, please contact the office. b. Intermittent leg pain may also be experienced and should not be concerned about unless it worsens for no apparent reason. If so, please contact the office. 5. We will provide appropriate medication within the normal guidelines of their prescribed use. We will also be very cautious and aware of potential abuse and extended duration of patients' medication needs. a. Pain medications are for your comfort and to assist with sleep and rest so that the tissue can heal. They are not provided in order to return to normal activity and should not be used through the day. To do so or worsening pain at night can result from ongoing tissue damage and development of tolerance to the prescribed medicine. 6. Please allow 2-3 days to process refills. Prescriptions will not be mailed but must be picked up at the office. FOLLOW UP VISIT: Keep your scheduled follow-up appointment. Any questions, please call the office at . Pending Studies at Discharge: No Stand-Alone Forms: My [facility], Smoking Cessation Medications and DC Order Prescriptions: New tramadol 50 mg tablet 50 mg PO Q6H PRN (Reason: pain, moderate) Qty: 30 0RF oxycodone 5 mg tablet 5 mg PO Q6H PRN (Reason: pain) Qty: 30 0RF Discontinued multivitamin Tablet 1 tab PO DAILY ibuprofen 200 mg Tablet 400 mg PO HS ibuprofen 200 mg Tablet 800 mg PO QAM Discharge Orders: Discharge Order (Routine); Ordered 09/23/23 Ordered By: Jeromy Ward Admission Data Admit Date/Time: 09/19/23 08:47 Attending Provider: Jeromy Ward Admit Provider: Jeromy Ward Primary Care Provider: PCP,NO Other Providers: Ale Riojas; Jeromy Ward; Heather Gruber.
--- NOTE | 2023-09-23 11:51 | Hospitalist Progress Note ---
Date of Service September 23, 2023 Assessment & Plan (1) Lumbar radiculopathy: Plan Lumbar radiculopathy Patient had problems of low back pain, was undergoing chiropractic services/physical therapy/using NSAIDs. Acute worsening on , affecting her activities of daily living. Admitting MRI lumbar spine: Large right paracentral disc extrusion at L4-5 which results in severe narrowing of the right lateral recess with significant mass effect upon the descending right L5 nerve root. At presentation, patient complains low back pain with radicular symptoms more on the RLE than LLE. s/p L4-L5 decompression fusion on 09/20/23 Pain management, DVT prophylaxis, PT/OT per primary team. Bowel regimen while on pain medications. Acute blood loss anemia: drop in post op Hb level. pt stable. No indication of blood transfusion as of now. Hypertensive urgency: Blood pressure fairly elevated, likely secondary to pain. Should improve with pain management. Continue with as needed blood pressure medication. Blood pressure has been better. Morbid obesity: BMI 43.9, patient counseled on lifestyle modification and weight reduction. Patient voiced understanding. DVT prophylaxis: SCDs for now, DVT chemoprophylaxis per primary. Full code Admission and Anticipated Discharge Date Admission Date: September 19, 2023 Subjective Patient was seen and examined at bedside. Patient not in any acute distress. No complaints. Physical Exam Physical Exam: GENERAL: Alert and oriented x3. NAD, on RA. Obese Class III. HEENT: No pallor, no icterus. Pupils equal, round and reactive to light. Oral mucosa moist. NECK: No JVD, no neck masses. HEART: S1 and S2 heard. Regular rate and rhythm. No murmur, no gallop. RESPIRATORY SYSTEM: Normal AP diameter. No accessory muscle use. No wheezing, no crackles. ABDOMEN: Soft, bowel sounds present, nontender, no distention. CENTRAL NERVOUS SYSTEM: No facial droop. Speech is clear. Obeys simple commands. Moves extremities. EXTREMITIES: No edema, no erythema seen. Lower back with clean dressing without soakage. Results & Data Results & Data Vital Signs (Past 12 Hours) Vital Signs Temp Pulse Resp BP BP Pulse Ox O2 Del Method 09/23/23 10:30 37.0 C 71 18 145/91 H 143/91 H 98 09/23/23 07:13 37.0 C 71 18 143/91 H 98 Room Air
== END 2023-09-23 11:05 | disposition home or self-care (01) | DRG 454 ==
LOC: ED 00:46 → EDINP 08:47 → 3E 11:38